=== PATIENT | female | born 1950 | race Caucasian/White ===

== ENCOUNTER 2018-06-21 06:04 | Emergency (ER) | payer MEDICARE, BC ==
[~2018-06-21] VITALS: Ht 170.2 cm; Wt 115.0 kg
[~2018-06-21 06:04] MED LIST: ALBU18HF2 IH; ASPI81TA52 PO; BUDE10.23 IH; CLON-527 PO; COR3.125T PO; FURO40TA4 PO; LEVO50TA67 PO; LISI-222 PO; POTA8TAB46 PO; PRAM0.5T12 PO; PROM25TA14 PO; TAPE100T PO; ZOC40T PO; [UNRECOGNIZED DRUG - CODE] TOP
[2018-06-21] MEDS ORDERED: normal saline 1000ML IV soln IVB ONE ×2 (06:10→07:05)
[2018-06-21] MEDS ORDERED: ondansetron/PF 4mg/2ml inj IV ONE (06:10)
[2018-06-21] MEDS ORDERED: glycopyrrolate 0.2mg/ml inj IV ONE (06:25)
[2018-06-21 06:35] LABS: BASOPHILS % (AUTO) 0.2 % (0-1); EOSINOPHILS # (AUTO) 0.1 X10'3 (0-0.9); EOSINOPHILS % (AUTO) 0.8 % (0-6); HEMATOCRIT 47.2 % (35.0-45.0); HEMOGLOBIN 15.8 g/dl (12.0-16.0); LYMPHOCYTES # (AUTO) 1.8 X10'3 (1.1-4.8); LYMPHOCYTES % (AUTO) 24.4 % (21-51); MEAN CORPUSCULAR HEMOGLOBIN 29.4 PG (27.0-31.0); MEAN CORPUSCULAR HGB CONC 33.4 % (33.0-36.5); MEAN CORPUSCULAR VOLUME 87.9 FL (78-98); MEAN PLATELET VOLUME 8.5 FL (7.4-10.4); MONOCYTES # (AUTO) 0.4 X10'3 (0-0.9); MONOCYTES % (AUTO) 4.9 % (2-12); NEUTROPHILS # (AUTO) 5.2 X10'3 (1.8-7.7); NEUTROPHILS % (AUTO) 69.7 % (42-75); PLATELET COUNT 321 X10'3 (140-440); RED BLOOD COUNT 5.37 X10'6 (4.20-5.60); RED CELL DISTRIBUTION WIDTH 12.8 % (11.5-14.5); WHITE BLOOD COUNT 7.5 X10'3 (4.5-11.0)
[2018-06-21 06:49] LABS: ALANINE AMINOTRANSFERASE 43 U/L (12-78); ALBUMIN 3.9 G/DL (3.4-5.0); ALKALINE PHOSPHATASE 101 IU/L (46-116); ANION GAP 17 (8-16); ASPARTATE AMINO TRANSFERASE 29 U/L (10-37); BILIRUBIN,TOTAL 0.8 MG/DL (0.1-1.0); BLOOD UREA NITROGEN 20 MG/DL (7-18); BUN/CREATININE RATIO 21.5 (6.6-38.0); CALCIUM 8.7 MG/DL (8.5-10.1); CHLORIDE 104 MMOL/L (99-107); CREATININE 0.93 MG/DL (0.40-0.90); GLUCOSE 140 MG/DL (70-104); LIPASE 83 U/L (73-393); POTASSIUM 3.4 MMOL/L (3.5-5.1); SODIUM 140 MMOL/L (135-145); eGFR 60 ML/MIN
--- NOTE | 2018-06-21 07:30 | NUR ---
pt aware of need for urine. pt is receiving IVF. on 2nd liter.
[2018-06-21 08:18] LABS: CLARITY,URINE CLEAR (Clear); COLOR,URINE YELLOW (Yellow); GLUCOSE, URINE NEGATIVE (Neg); KETONES,URINE 15 mg/dl (Neg); LEUKOCYTE ESTERASE ,URINE NEGATIVE (Neg); NITRITES, URINE NEGATIVE (Neg); OCCULT BLOOD,URINE TRACE-INTACT (Neg); PH,URINE 5.5 (4.8-8.0); PROTEIN,URINE NEGATIVE (Neg); UROBILINOGEN,URINE 0.2 E.U/dL (0.2-1.0)
[2018-06-21 08:29] LABS: UA COLLECTION TYPE CLN CATCH MIDSTREAM
[2018-06-21 08:31] LABS: SQUAMOUS EPITHELIAL CELL,UR MODERATE /LPF (FEW)
[2018-06-21 08:32] LABS: MUCUS STRANDS FEW /LPF (Neg)
[2018-06-21 08:33] LABS: BACTERIA,URINE 1+ /HPF (Neg); WBC,URINE 0-4 /HPF (0-4)
[2018-06-21 08:34] LABS: RBC,URINE 0-2 /HPF (0-2)
[2018-06-21] MEDS ORDERED: ONDA4TAB12 PO (08:43)
[2018-06-21] MEDS ORDERED: DICY10CA88 PO (08:43)
[2018-06-21 08:55] VITALS: BP 131/92
== END 2018-06-21 08:57 | disposition home or self-care (01) ==
LOC: ER 06:05
DX: E86.0 Dehydration (principal); R10.84 Generalized abdominal pain; R11.2 Nausea with vomiting, unspecified; R19.7 Diarrhea, unspecified; I50.9 Heart failure, unspecified; J44.9 Chronic obstructive pulmonary disease, unspecified; Z90.710 Acquired absence of both cervix and uterus; Z88.5 Allergy status to narcotic agent
CPT/HCPCS: 36415; 80053; 81001; 83605; 83690; 85025; 96361; 96374; 96375; 99283; J2405; J7030; J3490

== ENCOUNTER 2019-03-17 11:45 | Emergency (ER) | payer MEDICARE, BC ==
[~2019-03-17] VITALS: Ht 170.2 cm; Wt 133.8 kg
[~2019-03-17 11:45] MED LIST changes: -ALBU18HF2 IH; -ASPI81TA52 PO; -BUDE10.23 IH; -CLON-527 PO; -COR3.125T PO; -FURO40TA4 PO; -LEVO50TA67 PO; -LISI-222 PO; +ONDA4TAB12 PO; -POTA8TAB46 PO; -PRAM0.5T12 PO; -PROM25TA14 PO; -TAPE100T PO; -ZOC40T PO; -[UNRECOGNIZED DRUG - CODE] TOP
[2019-03-17 11:52] VITALS: BP 140/86
[2019-03-17] MEDS ORDERED: AMOX500C2 PO (12:27)
== END 2019-03-17 12:55 | disposition home or self-care (01) ==
LOC: ER 11:46
DX: J06.9 Acute upper respiratory infection, unspecified (principal); J02.9 Acute pharyngitis, unspecified; H92.09 Otalgia, unspecified ear; I50.9 Heart failure, unspecified; J44.9 Chronic obstructive pulmonary disease, unspecified; Z90.710 Acquired absence of both cervix and uterus; Z98.890 Other specified postprocedural states; Z60.2 Problems related to living alone; Z88.5 Allergy status to narcotic agent; Z79.899 Other long term (current) drug therapy
CPT/HCPCS: 99283

== ENCOUNTER 2019-08-31 11:51 | Emergency (ER) | payer MEDICARE, BC ==
[~2019-08-31] VITALS: Ht 170.2 cm; Wt 145.4 kg
[2019-08-31 11:52] VITALS: BP 156/85
[2019-08-31 12:45] LABS: BASOPHILS % (AUTO) 0.8 % (0-1); EOSINOPHILS # (AUTO) 0.3 X10'3 (0-0.9); EOSINOPHILS % (AUTO) 4.7 % (0-6); HEMATOCRIT 41.1 % (35.0-45.0); LYMPHOCYTES # (AUTO) 1.9 X10'3 (1.1-4.8); LYMPHOCYTES % (AUTO) 32.3 % (21-51); MEAN CORPUSCULAR HGB CONC 34.1 g/dL (33.0-36.5); MEAN CORPUSCULAR VOLUME 87.8 FL (78-98); MEAN PLATELET VOLUME 7.9 FL (7.4-10.4); MONOCYTES # (AUTO) 0.6 X10'3 (0-0.9); MONOCYTES % (AUTO) 10.7 % (2-12); NEUTROPHILS # (AUTO) 3.1 X10'3 (1.8-7.7); NEUTROPHILS % (AUTO) 51.5 % (42-75); PLATELET COUNT 269 X10'3 (140-440); RED BLOOD COUNT 4.68 X10'6 (4.20-5.60); RED CELL DISTRIBUTION WIDTH 13.3 % (11.5-14.5); WHITE BLOOD COUNT 5.9 X10'3 (4.5-11.0)
[2019-08-31 12:58] LABS: ALANINE AMINOTRANSFERASE 31 U/L (12-78); ALBUMIN 3.6 G/DL (3.4-5.0); ALKALINE PHOSPHATASE 99 IU/L (46-116); ANION GAP 9 (8-16); ASPARTATE AMINO TRANSFERASE 24 U/L (10-37); BILIRUBIN,TOTAL 0.6 MG/DL (0.1-1.0); BLOOD UREA NITROGEN 13 MG/DL (7-18); BUN/CREATININE RATIO 13.8 (6.6-38.0); CALCIUM 8.4 MG/DL (8.5-10.1); CHLORIDE 105 MMOL/L (99-107); CREATININE 0.94 MG/DL (0.40-0.90); GLUCOSE 122 MG/DL (70-104); SODIUM 137 MMOL/L (135-145); TOTAL PROTEIN 7.3 G/DL (6.4-8.2); eGFR 59 ML/MIN
--- NOTE | 2019-08-31 13:01 | NUR ---
in room getting breathing tx
--- NOTE | 2019-08-31 17:47 | NUR ---
Called in prescription for Zithromax per package instructions to [facility] on [facility] per Dr. Evans. 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
== END 2019-08-31 13:36 | disposition home or self-care (01) ==
LOC: ER 11:51
DX: B34.9 Viral infection, unspecified (principal); I50.9 Heart failure, unspecified; J44.9 Chronic obstructive pulmonary disease, unspecified; R05 Cough; R06.02 Shortness of breath; R09.3 Abnormal sputum; Z90.710 Acquired absence of both cervix and uterus; Z98.890 Other specified postprocedural states; Z87.891 Personal history of nicotine dependence; Z60.2 Problems related to living alone; Z88.5 Allergy status to narcotic agent; Z79.899 Other long term (current) drug therapy
CPT/HCPCS: 36415; 71046; 80053; 83605; 85025; 87040; 87502; 87503; 93005; 99285

== ENCOUNTER 2019-10-02 01:19 | Emergency (ER) | payer MEDICARE ==
[~2019-10-02] VITALS: Ht 170.2 cm; Wt 140.0 kg
[2019-10-02 01:52] LABS: BASOPHILS # (AUTO) 0.1 X10'3 (0-0.2); BASOPHILS % (AUTO) 0.7 % (0-1); EOSINOPHILS # (AUTO) 0.3 X10'3 (0-0.9); EOSINOPHILS % (AUTO) 2.5 % (0-6); HEMATOCRIT 42.4 % (35.0-45.0); HEMOGLOBIN 14.4 g/dl (12.0-16.0); LYMPHOCYTES # (AUTO) 3.3 X10'3 (1.1-4.8); LYMPHOCYTES % (AUTO) 27.5 % (21-51); MEAN CORPUSCULAR HEMOGLOBIN 30.3 PG (27.0-31.0); MEAN CORPUSCULAR HGB CONC 33.8 g/dL (33.0-36.5); MEAN CORPUSCULAR VOLUME 89.6 FL (78-98); MONOCYTES # (AUTO) 0.9 X10'3 (0-0.9); MONOCYTES % (AUTO) 7.2 % (2-12); NEUTROPHILS # (AUTO) 7.5 X10'3 (1.8-7.7); NEUTROPHILS % (AUTO) 62.1 % (42-75); PLATELET COUNT 317 X10'3 (140-440); RED BLOOD COUNT 4.74 X10'6 (4.20-5.60); RED CELL DISTRIBUTION WIDTH 13.4 % (11.5-14.5)
[2019-10-02 02:00] LABS: ALANINE AMINOTRANSFERASE 29 U/L (12-78); ALBUMIN 3.8 G/DL (3.4-5.0); ALKALINE PHOSPHATASE 103 IU/L (46-116); ANION GAP 9 (8-16); ASPARTATE AMINO TRANSFERASE 19 U/L (10-37); BILIRUBIN,TOTAL 0.6 MG/DL (0.1-1.0); BLOOD UREA NITROGEN 16 MG/DL (7-18); BUN/CREATININE RATIO 16.7 (6.6-38.0); CHLORIDE 104 MMOL/L (99-107); CREATININE 0.96 MG/DL (0.40-0.90); GLUCOSE 120 MG/DL (70-104); LIPASE 230 U/L (73-393); POTASSIUM 3.9 MMOL/L (3.5-5.1); SODIUM 139 MMOL/L (135-145); TOTAL CARBON DIOXIDE 26.1 MMOL/L (24-32); TOTAL PROTEIN 7.7 G/DL (6.4-8.2); eGFR 58 ML/MIN
[2019-10-02] MEDS ORDERED: ondansetron/PF 4mg/2ml inj IV ONE (02:15)
[2019-10-02] MEDS ORDERED: LIDOcaine Viscous 15ml cup MM ONE (02:15)
[2019-10-02] MEDS ORDERED: mag hydrox/Alum hydrox/simeth 30ml oral suspension PO ONE (02:15)
[2019-10-02] MEDS ORDERED: pantoprazole 40 MG vial IV ONE (02:15)
[2019-10-02 02:51] LABS: CLARITY,URINE CLEAR (Clear); COLOR,URINE YELLOW (Yellow); GLUCOSE, URINE NEGATIVE (Neg); KETONES,URINE NEGATIVE (Neg); LEUKOCYTE ESTERASE ,URINE TRACE (Neg); NITRITES, URINE NEGATIVE (Neg); OCCULT BLOOD,URINE NEGATIVE (Neg); PROTEIN,URINE NEGATIVE (Neg); UROBILINOGEN,URINE 0.2 E.U/dL (0.2-1.0)
[2019-10-02 03:04] LABS: UA COLLECTION TYPE CLN CATCH MIDSTREAM
[2019-10-02 03:06] LABS: BACTERIA,URINE NONE SEEN /HPF (Neg); MUCUS STRANDS FEW /LPF (Neg); RBC,URINE 0-2 /HPF (0-2); SQUAMOUS EPITHELIAL CELL,UR MODERATE /LPF (FEW); WBC,URINE 0-4 /HPF (0-4)
--- NOTE | 2019-10-02 03:46 | NUR ---
patient states " i am through the roof with pain." let md know,now dr. leyva at bedside assessing patients pain
[2019-10-02] MEDS ORDERED: SUCR1ORA12 PO (03:55)
[2019-10-02] MEDS ORDERED: sucralfate 1gm/10ml UD suspension PO SCH (03:55)
[2019-10-02] MEDS ORDERED: PANT-47 PO (03:55)
[2019-10-02 04:10] VITALS: BP 141/73
== END 2019-10-02 04:28 | disposition home or self-care (01) ==
LOC: ER 01:20
DX: R10.13 Epigastric pain (principal); R10.11 Right upper quadrant pain; R10.12 Left upper quadrant pain; I50.9 Heart failure, unspecified; J44.9 Chronic obstructive pulmonary disease, unspecified; E66.9 Obesity, unspecified; Z90.49 Acquired absence of other specified parts of digestive tract; Z90.710 Acquired absence of both cervix and uterus; Z98.890 Other specified postprocedural states; Z60.2 Problems related to living alone; Z88.5 Allergy status to narcotic agent; Z79.899 Other long term (current) drug therapy
CPT/HCPCS: 36415; 80053; 81001; 83690; 85025; 87088; 93005; 96374; 96375; 99284; C9113; J2405

== ENCOUNTER 2019-12-15 19:52 | Emergency (ER) | payer MEDICARE ==
[~2019-12-15] VITALS: Ht 170.2 cm; Wt 125.0 kg
[~2019-12-15 19:52] MED LIST changes: +PANT-47 PO; +SUCR1ORA12 PO
[2019-12-15] MEDS ORDERED: HYDR-4353 PO (21:32)
[2019-12-15] MEDS ORDERED: HYDROcodone/acetaminophen 10/325mg tab PO ONE (21:35)
[2019-12-15 22:29] VITALS: BP 170/91
== END 2019-12-15 22:22 | disposition home or self-care (01) ==
LOC: ER 19:52
DX: S89.91XA Unspecified injury of right lower leg, initial encounter (principal); I50.9 Heart failure, unspecified; J44.9 Chronic obstructive pulmonary disease, unspecified; Z60.2 Problems related to living alone; Z88.5 Allergy status to narcotic agent; Z79.899 Other long term (current) drug therapy; W10.9XXA Fall (on) (from) unspecified stairs and steps, initial encounter; Y93.89 Activity, other specified; Y92.89 Other specified places as the place of occurrence of the external cause; Y99.8 Other external cause status
CPT/HCPCS: 29505; 73564; 99283

== ENCOUNTER 2020-06-13 13:34 | Emergency (ER) | payer MEDICARE ==
[~2020-06-13] VITALS: Ht 170.2 cm; Wt 127.3 kg
[2020-06-13 14:09] VITALS: BP 129/90
[2020-06-13] MEDS ORDERED: ketorolac tromethamine 15mg/ml inj. IM ONE (17:45)
[2020-06-13] MEDS ORDERED: CYCL-1 PO (17:56)
== END 2020-06-13 18:20 | disposition home or self-care (01) ==
LOC: ER 13:35
DX: M54.31 Sciatica, right side (principal); I50.9 Heart failure, unspecified; J44.9 Chronic obstructive pulmonary disease, unspecified; E07.9 Disorder of thyroid, unspecified; Z98.890 Other specified postprocedural states; Z90.49 Acquired absence of other specified parts of digestive tract; Z90.710 Acquired absence of both cervix and uterus; Z88.6 Allergy status to analgesic agent; Z88.7 Allergy status to serum and vaccine; Z79.899 Other long term (current) drug therapy
CPT/HCPCS: 96372; 99283; J1885

== ENCOUNTER 2020-10-20 16:00 | Emergency (ER) | payer MEDICARE ==
[~2020-10-20] VITALS: Ht 170.2 cm; Wt 130.7 kg
[~2020-10-20 16:00] MED LIST changes: +CYCL-1 PO
[2020-10-20 17:15] LABS: BASOPHILS # (AUTO) 0.1 X10'3 (0-0.2); BASOPHILS % (AUTO) 0.8 % (0-1); EOSINOPHILS # (AUTO) 0.2 X10'3 (0-0.9); EOSINOPHILS % (AUTO) 2.9 % (0-6); HEMATOCRIT 41.2 % (35.0-45.0); HEMOGLOBIN 14.1 g/dl (12.0-16.0); LYMPHOCYTES # (AUTO) 2.7 X10'3 (1.1-4.8); LYMPHOCYTES % (AUTO) 32.9 % (21-51); MEAN CORPUSCULAR HGB CONC 34.2 g/dL (33.0-36.5); MEAN CORPUSCULAR VOLUME 90.6 FL (78-98); MEAN PLATELET VOLUME 8.3 FL (7.4-10.4); MONOCYTES # (AUTO) 0.6 X10'3 (0-0.9); MONOCYTES % (AUTO) 7.7 % (2-12); NEUTROPHILS # (AUTO) 4.5 X10'3 (1.8-7.7); NEUTROPHILS % (AUTO) 55.7 % (42-75); PLATELET COUNT 312 X10'3 (140-440); RED BLOOD COUNT 4.54 X10'6 (4.20-5.60); RED CELL DISTRIBUTION WIDTH 13.7 % (11.5-14.5); WHITE BLOOD COUNT 8.2 X10'3 (4.5-11.0)
[2020-10-20 17:24] LABS: ALANINE AMINOTRANSFERASE 26 U/L (12-78); ALBUMIN 3.6 G/DL (3.4-5.0); ALKALINE PHOSPHATASE 90 IU/L (46-116); ANION GAP 13 (8-16); ASPARTATE AMINO TRANSFERASE 18 U/L (10-37); BILIRUBIN,TOTAL 0.4 MG/DL (0.1-1.0); BLOOD UREA NITROGEN 23 MG/DL (7-18); BUN/CREATININE RATIO 25.3 (6.6-38.0); CALCIUM 8.7 MG/DL (8.5-10.1); CHLORIDE 106 MMOL/L (99-107); CREATININE 0.91 MG/DL (0.40-0.90); GLUCOSE 140 MG/DL (70-104); POTASSIUM 3.9 MMOL/L (3.5-5.1); SODIUM 140 MMOL/L (135-145); TOTAL CARBON DIOXIDE 21.1 MMOL/L (24-32); TOTAL PROTEIN 7.3 G/DL (6.4-8.2); eGFR 61 ML/MIN
[2020-10-20] MEDS ORDERED: DOXY100C77 PO (19:50)
[2020-10-20 20:09] VITALS: BP 132/93
== END 2020-10-20 20:15 | disposition home or self-care (01) ==
LOC: ER 16:01
DX: J01.90 Acute sinusitis, unspecified (principal); Z88.6 Allergy status to analgesic agent; Z88.8 Allergy status to other drugs, medicaments and biological substances; Z79.899 Other long term (current) drug therapy; J01.80 Other acute sinusitis
CPT/HCPCS: 36415; 71045; 80053; 83880; 84484; 85025; 93005; 96372; 99284; 99285

== ENCOUNTER 2021-03-12 13:00 | Emergency (ER) | payer MEDICARE ==
[~2021-03-12] VITALS: Ht 170.2 cm; Wt 127.3 kg
[2021-03-12 13:38] VITALS: BP 160/76
[2021-03-12] MEDS ORDERED: ketorolac trometh. 30mg/ml inj. IM ONE (14:25)
== END 2021-03-12 14:45 | disposition home or self-care (01) ==
LOC: ER 13:00
DX: S93.401A Sprain of unspecified ligament of right ankle, initial encounter (principal); J44.9 Chronic obstructive pulmonary disease, unspecified; I50.9 Heart failure, unspecified; Z87.01 Personal history of pneumonia (recurrent); Z90.49 Acquired absence of other specified parts of digestive tract; Z98.890 Other specified postprocedural states; Z90.710 Acquired absence of both cervix and uterus; W17.89XA Other fall from one level to another, initial encounter; Y93.89 Activity, other specified; Y92.89 Other specified places as the place of occurrence of the external cause; Y99.8 Other external cause status
CPT/HCPCS: 73610; 96372; 99283; J1885

== ENCOUNTER 2021-04-06 17:10 | Emergency (ER) | payer MEDICARE ==
[~2021-04-06] VITALS: Ht 170.2 cm; Wt 127.3 kg
[2021-04-06 18:05] VITALS: BP_SYST 161
[2021-04-06] MEDS ORDERED: SULF1TAB49 PO (18:44)
== END 2021-04-06 18:52 | disposition home or self-care (01) ==
LOC: ER 17:10
DX: J01.90 Acute sinusitis, unspecified (principal); Z20.822 Contact with and (suspected) exposure to COVID-19; I50.9 Heart failure, unspecified; J44.9 Chronic obstructive pulmonary disease, unspecified; Z87.01 Personal history of pneumonia (recurrent); Z90.49 Acquired absence of other specified parts of digestive tract; Z90.710 Acquired absence of both cervix and uterus; Z60.2 Problems related to living alone; Z79.2 Long term (current) use of antibiotics; Z79.899 Other long term (current) drug therapy
CPT/HCPCS: 87635; 99283; C9803

== ENCOUNTER 2021-11-06 14:40 | Emergency (ER) | payer MEDICARE ==
[~2021-11-06] VITALS: Ht 170.2 cm; Wt 131.8 kg
[2021-11-06 15:36] LABS: BASOPHILS # (AUTO) 0.1 X10'3 (0-0.2); BASOPHILS % (AUTO) 0.6 % (0-1); EOSINOPHILS # (AUTO) 0.3 X10'3 (0-0.9); HEMATOCRIT 40.9 % (35.0-45.0); LYMPHOCYTES # (AUTO) 3.2 X10'3 (1.1-4.8); LYMPHOCYTES % (AUTO) 34.9 % (21-51); MEAN CORPUSCULAR HEMOGLOBIN 30.5 PG (27.0-31.0); MEAN CORPUSCULAR HGB CONC 34.2 g/dL (33.0-36.5); MEAN CORPUSCULAR VOLUME 89.2 FL (78-98); MEAN PLATELET VOLUME 8.3 FL (7.4-10.4); MONOCYTES # (AUTO) 0.7 X10'3 (0-0.9); MONOCYTES % (AUTO) 7.5 % (2-12); PLATELET COUNT 297 X10'3 (140-440); RED BLOOD COUNT 4.59 X10'6 (4.20-5.60); RED CELL DISTRIBUTION WIDTH 13.5 % (11.5-14.5); WHITE BLOOD COUNT 9.2 X10'3 (4.5-11.0)
[2021-11-06 15:53] LABS: APTT 28 SECONDS (22-32)
[2021-11-06 15:55] LABS: ALANINE AMINOTRANSFERASE 22 U/L (12-78); ALBUMIN 3.7 G/DL (3.4-5.0); ALBUMIN/GLOBULIN RATIO 1.1 (1.1-1.5); ALKALINE PHOSPHATASE 80 IU/L (46-116); ANION GAP 7 (8-16); ASPARTATE AMINO TRANSFERASE 12 U/L (10-37); BILIRUBIN,TOTAL 0.4 MG/DL (0.1-1.0); BLOOD UREA NITROGEN 30 MG/DL (7-18); BUN/CREATININE RATIO 36.1 (6.6-38.0); CHLORIDE 104 MMOL/L (99-107); CREATININE 0.83 MG/DL (0.40-0.90); GLUCOSE 129 MG/DL (70-104); POTASSIUM 3.6 MMOL/L (3.5-5.1); SODIUM 137 MMOL/L (135-145); TOTAL CARBON DIOXIDE 25.8 MMOL/L (24-32); TOTAL PROTEIN 7.2 G/DL (6.4-8.2); eGFR 68 ML/MIN
[2021-11-06 16:15] VITALS: BP 146/110
== END 2021-11-06 16:56 | disposition home or self-care (01) ==
LOC: ER 14:41
DX: R55 Syncope and collapse (principal); R42 Dizziness and giddiness; R11.0 Nausea; R53.1 Weakness; R29.810 Facial weakness; I50.9 Heart failure, unspecified; J44.9 Chronic obstructive pulmonary disease, unspecified; Z87.01 Personal history of pneumonia (recurrent); Z90.49 Acquired absence of other specified parts of digestive tract; Z90.710 Acquired absence of both cervix and uterus; Z79.899 Other long term (current) drug therapy
CPT/HCPCS: 36415; 70450; 71045; 80053; 82948; 84484; 85025; 85610; 85730; 93005; 99285

== ENCOUNTER 2022-10-18 19:21 | Emergency (ER) | payer MEDICARE ==
[~2022-10-18] VITALS: Ht 170.2 cm; Wt 105.6 kg
[2022-10-18] MEDS ORDERED: sulfamethoxazole/trimethoprim DS (800/160mg) tablet PO ONE (20:45)
[2022-10-18] MEDS ORDERED: SULF1TAB49 PO (21:02)
[2022-10-18 21:07] VITALS: BP 132/81
== END 2022-10-18 21:07 | disposition home or self-care (01) ==
LOC: ER 19:21
DX: J01.80 Other acute sinusitis (principal); I51.9 Heart disease, unspecified; Z79.899 Other long term (current) drug therapy
CPT/HCPCS: 99283

== ENCOUNTER 2022-12-10 15:27 | Emergency (ER) | payer MEDICARE ==
[~2022-12-10] VITALS: Ht 170.2 cm; Wt 118.4 kg
[2022-12-10] MEDS ORDERED: dexamethasone sod phosphate 10mg/ml inj PO STA (16:07)
[2022-12-10] MEDS ORDERED: morphine 4 MG/ML inj SYRINge IM ONE (16:10)
[2022-12-10] MEDS ORDERED: orphenadrine citrate 60mg/2ml inj. IM ONE (16:10)
[2022-12-10] MEDS ORDERED: ondansetron 4mg rapidly disintigrating tab PO ONE (16:10)
[2022-12-10] MEDS ORDERED: CYCL-1 PO (16:17)
[2022-12-10] MEDS ORDERED: IBUP-1984 PO (16:17)
[2022-12-10] MEDS ORDERED: METH4TAB3 PO (16:17)
[2022-12-10 16:39] VITALS: BP 133/84
== END 2022-12-10 17:34 | disposition home or self-care (01) ==
LOC: ER 15:28
DX: S39.012A Strain of muscle, fascia and tendon of lower back, initial encounter (principal); M54.32 Sciatica, left side; J44.9 Chronic obstructive pulmonary disease, unspecified; I50.9 Heart failure, unspecified; Z90.49 Acquired absence of other specified parts of digestive tract; Z90.710 Acquired absence of both cervix and uterus; X58.XXXA Exposure to other specified factors, initial encounter; Y93.89 Activity, other specified; Y92.89 Other specified places as the place of occurrence of the external cause; Y99.8 Other external cause status
CPT/HCPCS: 96372; 99284; J1100; J2270; J2360

== ENCOUNTER 2023-01-14 17:05 | Emergency (ER) | payer MEDICARE ==
[~2023-01-14] VITALS: Ht 170.2 cm; Wt 100.0 kg
[~2023-01-14 17:05] MED LIST changes: +METH4TAB3 PO
[2023-01-14 17:15] VITALS: BP 134/88; PULSE 89; TEMP 98.2; O2SAT 97
[2023-01-14] MEDS ORDERED: ketorolac tromethamine 15mg/ml inj. IM ONE (18:10)
[2023-01-14] MEDS ORDERED: HYDR-3965 PO (18:20)
[2023-01-14 18:35] VITALS: RESP 20
== END 2023-01-14 19:00 | disposition home or self-care (01) ==
LOC: ER 17:06
DX: S86.011A Strain of right Achilles tendon, initial encounter (principal); I50.9 Heart failure, unspecified; J44.9 Chronic obstructive pulmonary disease, unspecified; Z79.899 Other long term (current) drug therapy; Z90.710 Acquired absence of both cervix and uterus; Z90.49 Acquired absence of other specified parts of digestive tract; X58.XXXA Exposure to other specified factors, initial encounter; Y93.89 Activity, other specified; Y92.89 Other specified places as the place of occurrence of the external cause; Y99.8 Other external cause status
CPT/HCPCS: 73610; 96372; 99283; J1885; L4360

== ENCOUNTER 2023-05-20 18:58 | Inpatient (IN) | payer MEDICARE ==
[~2023-05-20] VITALS: Ht 170.2 cm; Wt 115.0 kg
[2023-05-20 19:32] LABS: BASOPHILS % (AUTO) 0.6 % (0-1); EOSINOPHILS # (AUTO) 0.2 X10'3 (0-0.9); EOSINOPHILS % (AUTO) 3.1 % (0-6); HEMATOCRIT 41.3 % (35.0-45.0); HEMOGLOBIN 14.4 g/dl (12.0-16.0); LYMPHOCYTES # (AUTO) 2.1 X10'3 (1.1-4.8); LYMPHOCYTES % (AUTO) 28.6 % (21-51); MEAN CORPUSCULAR HEMOGLOBIN 30.9 PG (27.0-31.0); MEAN CORPUSCULAR HGB CONC 34.9 g/dL (33.0-36.5); MEAN CORPUSCULAR VOLUME 88.6 FL (78-98); MEAN PLATELET VOLUME 8.2 FL (7.4-10.4); MONOCYTES # (AUTO) 0.7 X10'3 (0-0.9); MONOCYTES % (AUTO) 9.1 % (2-12); NEUTROPHILS # (AUTO) 4.3 X10'3 (1.8-7.7); NEUTROPHILS % (AUTO) 58.6 % (42-75); PLATELET COUNT 292 X10'3 (140-440); RED BLOOD COUNT 4.66 X10'6 (4.20-5.60); RED CELL DISTRIBUTION WIDTH 13.3 % (11.5-14.5); WHITE BLOOD COUNT 7.3 X10'3 (4.5-11.0)
[2023-05-20 19:41] LABS: ALANINE AMINOTRANSFERASE 28 U/L (12-78); ALBUMIN 3.8 G/DL (3.4-5.0); ALBUMIN/GLOBULIN RATIO 1.2 (1.1-1.5); ALKALINE PHOSPHATASE 92 IU/L (46-116); ASPARTATE AMINO TRANSFERASE 23 U/L (10-37); BILIRUBIN,TOTAL 0.6 MG/DL (0.1-1.0); BLOOD UREA NITROGEN 27 MG/DL (7-18); BUN/CREATININE RATIO 29.3 (10.0-20.0); CALCIUM 9.3 MG/DL (8.5-10.1); CHLORIDE 105 MMOL/L (99-107); CREATININE 0.92 MG/DL (0.40-0.90); GLUCOSE 113 MG/DL (70-104); LIPASE 30 U/L (16-77); POTASSIUM 3.5 MMOL/L (3.5-5.1); TOTAL PROTEIN 7.1 G/DL (6.4-8.2); eCRCL 55 ML/MIN; eGFR 60 ML/MIN
[2023-05-20 19:42] LABS: ANION GAP 11 (8-16); SODIUM 140 MMOL/L (135-145)
[2023-05-20] MEDS ORDERED: normal saline 1000ml 1,000 ML IV ONE (20:45)
[2023-05-20] MEDS ORDERED: iohexol 300mg/ml 100ml inj. ONE (21:08)
[2023-05-20] MEDS ORDERED: HYDROmorphone inj. 0.5 MG/0.5 ML DISP.SYRIN IV ONE (21:15)
[2023-05-20 21:20] LABS: BILIRUBIN,URINE NEGATIVE (Neg); CLARITY,URINE SLIGHTLY CLOUDY (Clear); COLOR,URINE YELLOW (Yellow); GLUCOSE, URINE NEGATIVE (Neg); KETONES,URINE NEGATIVE (Neg); LEUKOCYTE ESTERASE ,URINE MODERATE (Neg); NITRITES, URINE NEGATIVE (Neg); OCCULT BLOOD,URINE NEGATIVE (Neg); PH,URINE 5.5 (4.8-8.0); PROTEIN,URINE NEGATIVE (Neg); UROBILINOGEN,URINE 0.2 E.U/dL (0.2-1.0)
[2023-05-20 21:30] LABS: UA COLLECTION TYPE CLN CATCH MIDSTREAM
[2023-05-20 21:42] LABS: BACTERIA,URINE 1+ /HPF (Neg); MUCUS STRANDS MODERATE /LPF (Neg); RBC,URINE NONE SEEN /HPF (0-2); SQUAMOUS EPITHELIAL CELL,UR FEW /LPF (FEW); WBC,URINE 30-50 /HPF (0-4)
[2023-05-20] MEDS ORDERED: CefTRIAXone 2gm/D5W 50ml BAG 50 ML IV ONE (22:35)
[2023-05-20] MEDS ORDERED: NO HOME MEDS (23:14)
[2023-05-21] MEDS ORDERED: ondansetron/PF 4mg/2ml inj IV PRN
[2023-05-21] MEDS ORDERED: pantoprazole 40 MG vial IV ONE
[2023-05-21] MEDS ORDERED: magnesium 2GM in 50ml NS 50 ML IV PRN
[2023-05-21] MEDS ORDERED: magnesium 4gm in 100ml NS 100 ML IV PRN
[2023-05-21] MEDS ORDERED: acetaminophen 325mg tablet PO PRN
[2023-05-21] MEDS ORDERED: potassium Cl 20 mEq SR tablet PO PRN ×2
[2023-05-21] MEDS ORDERED: potassium Cl 40MEQ/1/2NS 520ml 520 ML IV PRN
[2023-05-21] MEDS ORDERED: magnesium hydroxide 30ml (MOM) UD suspension PO PRN
[2023-05-21] MEDS ORDERED: magnesium Cl slow-release 64mg tablet PO PRN
[2023-05-21] MEDS: docusate sod 100mg capsule PO SCH ×2 (06:53→19:36)
[2023-05-21] MEDS: heparin, porcine 5000 units/ml vial SQ SCH ×2 (06:54→20:25)
[2023-05-21] MEDS: CefTRIAXone/D5W-Rocephin 1gm 50 ML IV SCH (06:54)
[2023-05-21] MEDS: K and/or MAG REPLACEMENT MC SCH ×2 (07:35→19:36)
[2023-05-21] MEDS ORDERED: mag hydrox/Alum hydrox/simeth 30ml oral suspension PO ONE (07:50)
[2023-05-21] MEDS ORDERED: ketorolac trometh. 30mg/ml inj. IV ONE (07:50)
[2023-05-21] MEDS ORDERED: mag hydrox/Alum hydrox/simeth 30ml oral suspension PO PRN ×2 (07:50)
[2023-05-21] MEDS ORDERED: pregabalin 75mg capsule PO SCH (08:00)
[2023-05-21 08:15] LABS: BASOPHILS # (AUTO) 0.1 X10'3 (0-0.2); BASOPHILS % (AUTO) 0.7 % (0-1); EOSINOPHILS # (AUTO) 0.3 X10'3 (0-0.9); EOSINOPHILS % (AUTO) 4.1 % (0-6); HEMATOCRIT 39.8 % (35.0-45.0); HEMOGLOBIN 13.5 g/dl (12.0-16.0); LYMPHOCYTES # (AUTO) 2.2 X10'3 (1.1-4.8); LYMPHOCYTES % (AUTO) 32.1 % (21-51); MEAN CORPUSCULAR HEMOGLOBIN 30.4 PG (27.0-31.0); MEAN CORPUSCULAR HGB CONC 33.9 g/dL (33.0-36.5); MEAN CORPUSCULAR VOLUME 89.5 FL (78-98); MEAN PLATELET VOLUME 8.2 FL (7.4-10.4); MONOCYTES # (AUTO) 0.6 X10'3 (0-0.9); MONOCYTES % (AUTO) 9.1 % (2-12); NEUTROPHILS # (AUTO) 3.8 X10'3 (1.8-7.7); PLATELET COUNT 280 X10'3 (140-440); RED BLOOD COUNT 4.45 X10'6 (4.20-5.60); RED CELL DISTRIBUTION WIDTH 13.2 % (11.5-14.5)
[2023-05-21 08:21] LABS: ALANINE AMINOTRANSFERASE 26 U/L (12-78); ALBUMIN 3.5 G/DL (3.4-5.0); ALKALINE PHOSPHATASE 89 IU/L (46-116); ANION GAP 10 (8-16); ASPARTATE AMINO TRANSFERASE 23 U/L (10-37); BILIRUBIN,TOTAL 0.5 MG/DL (0.1-1.0); BLOOD UREA NITROGEN 24 MG/DL (7-18); BUN/CREATININE RATIO 24.7 (10.0-20.0); CALCIUM 8.9 MG/DL (8.5-10.1); CHLORIDE 106 MMOL/L (99-107); CREATININE 0.97 MG/DL (0.40-0.90); GLUCOSE 134 MG/DL (70-104); MAGNESIUM 1.9 MG/DL (1.5-2.4); POTASSIUM 3.6 MMOL/L (3.5-5.1); SODIUM 142 MMOL/L (135-145); TOTAL CARBON DIOXIDE 26.2 MMOL/L (24-32); eCRCL 52 ML/MIN; eGFR 57 ML/MIN
[2023-05-21] MEDS: pregabalin 75mg capsule PO SCH (20:25)
[2023-05-21] MEDS: diatr meglu/diatrizoate 30ml oral sol.-(3 dose) bottle PO SCH (20:45)
[2023-05-21 23:00] VITALS: BP 139/72; PULSE 56; RESP 16; RESP 18; TEMP 98; O2SAT 94
[2023-05-22 06:04] LABS: MEAN PLATELET VOLUME 8.3 FL (7.4-10.4); WHITE BLOOD COUNT 5.5 X10'3 (4.5-11.0)
[2023-05-22 06:08] LABS: BASOPHILS % (AUTO) 0.5 % (0-1); EOSINOPHILS # (AUTO) 0.4 X10'3 (0-0.9); EOSINOPHILS % (AUTO) 6.8 % (0-6); HEMATOCRIT 38.3 % (35.0-45.0); HEMOGLOBIN 13.1 g/dl (12.0-16.0); LYMPHOCYTES # (AUTO) 2.2 X10'3 (1.1-4.8); LYMPHOCYTES % (AUTO) 39.7 % (21-51); MEAN CORPUSCULAR HEMOGLOBIN 30.8 PG (27.0-31.0); MEAN CORPUSCULAR HGB CONC 34.3 g/dL (33.0-36.5); MONOCYTES # (AUTO) 0.5 X10'3 (0-0.9); MONOCYTES % (AUTO) 9.9 % (2-12); NEUTROPHILS # (AUTO) 2.4 X10'3 (1.8-7.7); NEUTROPHILS % (AUTO) 43.1 % (42-75); PLATELET COUNT 255 X10'3 (140-440); RED BLOOD COUNT 4.25 X10'6 (4.20-5.60); RED CELL DISTRIBUTION WIDTH 12.8 % (11.5-14.5)
[2023-05-22 06:25] LABS: ALANINE AMINOTRANSFERASE 25 U/L (12-78); ALBUMIN 3.3 G/DL (3.4-5.0); ALBUMIN/GLOBULIN RATIO 1.1 (1.1-1.5); ALKALINE PHOSPHATASE 78 IU/L (46-116); ANION GAP 7 (8-16); ASPARTATE AMINO TRANSFERASE 20 U/L (10-37); BILIRUBIN,TOTAL 0.6 MG/DL (0.1-1.0); BLOOD UREA NITROGEN 19 MG/DL (7-18); BUN/CREATININE RATIO 22.6 (10.0-20.0); CALCIUM 8.9 MG/DL (8.5-10.1); CHLORIDE 107 MMOL/L (99-107); CREATININE 0.84 MG/DL (0.40-0.90); GLUCOSE 96 MG/DL (70-104); POTASSIUM 3.9 MMOL/L (3.5-5.1); SODIUM 140 MMOL/L (135-145); TOTAL CARBON DIOXIDE 25.8 MMOL/L (24-32); TOTAL PROTEIN 6.3 G/DL (6.4-8.2); eCRCL 60 ML/MIN; eGFR 67 ML/MIN
[2023-05-22 06:42] VITALS: BP 135/67; PULSE 55; RESP 16; TEMP 98; O2SAT 95
[2023-05-22] MEDS: K and/or MAG REPLACEMENT MC SCH ×2 (06:53→07:21)
[2023-05-22] MEDS: heparin, porcine 5000 units/ml vial SQ SCH (07:10)
[2023-05-22] MEDS: docusate sod 100mg capsule PO SCH (07:14)
[2023-05-22] MEDS: diatr meglu/diatrizoate 30ml oral sol.-(3 dose) bottle PO SCH (07:16)
[2023-05-22] MEDS: pregabalin 75mg capsule PO SCH (07:16)
[2023-05-22 08:00] VITALS: RESP 16; O2SAT 94
[2023-05-22] MEDS: CefTRIAXone/D5W-Rocephin 1gm 50 ML IV SCH (09:22)
[2023-05-22 09:25] VITALS: RESP 18
[2023-05-22 10:00] VITALS: BP 119/78; PULSE 65; RESP 16; TEMP 97.4; O2SAT 95
[2023-05-22] MEDS ORDERED: pneumococcal 23-VAL P-sac vacc 25 mcg/0.5ml vial IMVAC ONE ×2 (10:00→19:00)
[2023-05-22] MEDS ORDERED: FLU VACC QS2023-24(6MOS UP)/PF 60 MCG/0.5 ML SYRINGE IM ONE ×2 (10:00→19:00)
[2023-05-22] MEDS ORDERED: iohexol 300mg/ml 100ml inj. ONE (11:36)
[2023-05-22] MEDS ORDERED: CEPH250T PO (11:45)
== END 2023-05-22 13:47 | disposition home or self-care (01) | DRG 690 ==
LOC: ER 18:58 → ED HOLD 23:59 → EDBEDREQ 05-21 23:10 → ORTHO 4S 05-21 23:35
PROVIDERS: ADMIT Internal Medicine; ATTEND Family Medicine
PROC: 3E0234Z Introduction of Serum, Toxoid and Vaccine into Muscle, Percutaneous Approach (ICD-10-PCS; principal; 2023-05-20)
DX: N30.00 Acute cystitis without hematuria (principal); J44.9 Chronic obstructive pulmonary disease, unspecified; I50.9 Heart failure, unspecified; G50.0 Trigeminal neuralgia; K44.9 Diaphragmatic hernia without obstruction or gangrene; F32.A Depression, unspecified; K21.9 Gastro-esophageal reflux disease without esophagitis; Z90.49 Acquired absence of other specified parts of digestive tract; Z90.710 Acquired absence of both cervix and uterus; Z79.899 Other long term (current) drug therapy; K29.70 Gastritis, unspecified, without bleeding
CPT/HCPCS: 36415; 74177; 80053; 81001; 83605; 83690; 83735; 84145; 85025; 87040; 87077; 87081; 87088; 87186; 90686; 90732; 99285; C2617; C9113; G0378; J0696; J1170; J1644; J1885; J2405; J3490; J7030; Q9963; Q9967

== ENCOUNTER 2023-06-08 15:22 | Emergency (ER) | payer MEDICARE ==
[~2023-06-08] VITALS: Ht 170.2 cm; Wt 113.6 kg
[~2023-06-08 15:22] MED LIST changes: +CEPH250T PO; -CYCL-1 PO; -METH4TAB3 PO; +NO HOME MEDS; -ONDA4TAB12 PO; -PANT-47 PO; -SUCR1ORA12 PO
[2023-06-08 16:49] LABS: BASOPHILS % (AUTO) 0.5 % (0-1); EOSINOPHILS # (AUTO) 0.3 X10'3 (0-0.9); EOSINOPHILS % (AUTO) 4.6 % (0-6); HEMATOCRIT 42.3 % (35.0-45.0); HEMOGLOBIN 14.5 g/dl (12.0-16.0); LYMPHOCYTES % (AUTO) 29.8 % (21-51); MEAN CORPUSCULAR HEMOGLOBIN 30.5 PG (27.0-31.0); MEAN CORPUSCULAR HGB CONC 34.2 g/dL (33.0-36.5); MEAN CORPUSCULAR VOLUME 89.2 FL (78-98); MEAN PLATELET VOLUME 8.4 FL (7.4-10.4); MONOCYTES # (AUTO) 0.7 X10'3 (0-0.9); MONOCYTES % (AUTO) 9.9 % (2-12); NEUTROPHILS # (AUTO) 3.7 X10'3 (1.8-7.7); NEUTROPHILS % (AUTO) 55.2 % (42-75); PLATELET COUNT 292 X10'3 (140-440); RED BLOOD COUNT 4.74 X10'6 (4.20-5.60); RED CELL DISTRIBUTION WIDTH 13.6 % (11.5-14.5); WHITE BLOOD COUNT 6.7 X10'3 (4.5-11.0)
[2023-06-08 17:02] LABS: ALANINE AMINOTRANSFERASE 23 U/L (12-78); ALBUMIN 3.6 G/DL (3.4-5.0); ALBUMIN/GLOBULIN RATIO 1.1 (1.1-1.5); ALKALINE PHOSPHATASE 84 IU/L (46-116); ANION GAP 10 (8-16); ASPARTATE AMINO TRANSFERASE 20 U/L (10-37); BILIRUBIN,TOTAL 0.4 MG/DL (0.1-1.0); BLOOD UREA NITROGEN 18 MG/DL (7-18); BUN/CREATININE RATIO 21.4 (10.0-20.0); CALCIUM 8.9 MG/DL (8.5-10.1); CHLORIDE 106 MMOL/L (99-107); CREATININE 0.84 MG/DL (0.40-0.90); GLUCOSE 129 MG/DL (70-104); LIPASE 28 U/L (16-77); POTASSIUM 3.8 MMOL/L (3.5-5.1); SODIUM 139 MMOL/L (135-145); TOTAL CARBON DIOXIDE 23.1 MMOL/L (24-32); eCRCL 60 ML/MIN; eGFR 67 ML/MIN
[2023-06-08 19:15] VITALS: TEMP 98
[2023-06-08 22:50] LABS: BILIRUBIN,URINE NEGATIVE (Neg); CLARITY,URINE CLOUDY (Clear); COLOR,URINE YELLOW (Yellow); GLUCOSE, URINE NEGATIVE (Neg); KETONES,URINE NEGATIVE (Neg); LEUKOCYTE ESTERASE ,URINE MODERATE (Neg); NITRITES, URINE NEGATIVE (Neg); OCCULT BLOOD,URINE SMALL (Neg); PH,URINE 5.5 (4.8-8.0); PROTEIN,URINE NEGATIVE (Neg); UROBILINOGEN,URINE 0.2 E.U/dL (0.2-1.0)
[2023-06-08 22:57] LABS: MUCUS STRANDS MANY /LPF (Neg); SQUAMOUS EPITHELIAL CELL,UR MANY /LPF (FEW); UA COLLECTION TYPE VOIDED
[2023-06-08 22:58] LABS: WBC,URINE 30-50 /HPF (0-4)
[2023-06-08 23:00] LABS: AMORPHOUS URATES 1+; CAL OXALATE CRYSTALS 1+ /HPF (NEGATIVE); WBC CLUMPS,URINE FEW /HPF (NEGATIVE)
[2023-06-08 23:01] VITALS: BP 156/87; PULSE 60; RESP 20; O2SAT 96
[2023-06-08 23:01] LABS: BACTERIA,URINE 1+ /HPF (Neg); RBC,URINE 0-2 /HPF (0-2)
[2023-06-08] MEDS ORDERED: LIDOcaine Viscous 15ml cup MM ONE (23:10)
[2023-06-08] MEDS ORDERED: ondansetron 4mg rapidly disintigrating tab PO ONE (23:10)
[2023-06-08] MEDS ORDERED: mag hydrox/Alum hydrox/simeth 30ml oral suspension PO ONE (23:10)
[2023-06-08] MEDS ORDERED: famotidine 20mg tablet PO ONE (23:10)
[2023-06-08] MEDS ORDERED: pantoprazole 40mg Tablet.DR PO ONE (23:10)
[2023-06-09] MEDS ORDERED: PANT-47 PO (01:07)
== END 2023-06-09 05:23 | disposition home or self-care (01) ==
LOC: ER 15:23
DX: K29.70 Gastritis, unspecified, without bleeding (principal); I50.9 Heart failure, unspecified; J44.9 Chronic obstructive pulmonary disease, unspecified; Z90.49 Acquired absence of other specified parts of digestive tract; Z90.710 Acquired absence of both cervix and uterus; Z79.899 Other long term (current) drug therapy; Z79.2 Long term (current) use of antibiotics
CPT/HCPCS: 36415; 80053; 81001; 83690; 85025; 99283

== ENCOUNTER 2024-05-06 12:33 | Emergency (ER) | payer MEDICARE ==
[~2024-05-06] VITALS: Ht 170.2 cm; Wt 122.5 kg
[~2024-05-06 12:33] MED LIST changes: +PANT-47 PO
[2024-05-06] MEDS ORDERED: FLUT16SP2 BOTHNARES (14:07)
[2024-05-06] MEDS ORDERED: AMOX-580 PO (14:07)
[2024-05-06] MEDS ORDERED: MUPI22OI30 TP (14:07)
[2024-05-06 14:26] VITALS: BP 134/86; PULSE 88; RESP 18; TEMP 98.8; O2SAT 98
== END 2024-05-06 14:27 | disposition home or self-care (01) ==
LOC: ER 12:33
DX: J01.00 Acute maxillary sinusitis, unspecified (principal); I50.9 Heart failure, unspecified; J44.9 Chronic obstructive pulmonary disease, unspecified; Z79.2 Long term (current) use of antibiotics; Z79.899 Other long term (current) drug therapy; Z90.49 Acquired absence of other specified parts of digestive tract; Z90.710 Acquired absence of both cervix and uterus
CPT/HCPCS: 99284

== ENCOUNTER 2024-06-13 06:08 | Emergency (ER) | payer MEDICARE ==
[~2024-06-13] VITALS: Ht 170.2 cm; Wt 118.8 kg
[~2024-06-13 06:08] MED LIST changes: -CEPH250T PO; +FLUT16SP2 BOTHNARES
[2024-06-13 06:11] VITALS: TEMP 97.7
[2024-06-13 07:47] LABS: BASOPHILS % (AUTO) 0.6 % (0-1); EOSINOPHILS # (AUTO) 0.3 X10'3 (0-0.9); EOSINOPHILS % (AUTO) 3.8 % (0-6); HEMATOCRIT 39.8 % (35.0-45.0); HEMOGLOBIN 13.6 g/dl (12.0-16.0); LYMPHOCYTES # (AUTO) 2.4 X10'3 (1.1-4.8); LYMPHOCYTES % (AUTO) 34.8 % (21-51); MEAN CORPUSCULAR HEMOGLOBIN 30.9 PG (27.0-31.0); MEAN CORPUSCULAR HGB CONC 34.2 g/dL (33.0-36.5); MEAN CORPUSCULAR VOLUME 90.2 FL (78-98); MONOCYTES # (AUTO) 0.7 X10'3 (0-0.9); MONOCYTES % (AUTO) 10.5 % (2-12); NEUTROPHILS # (AUTO) 3.5 X10'3 (1.8-7.7); NEUTROPHILS % (AUTO) 50.3 % (42-75); PLATELET COUNT 301 X10'3 (140-440); RED BLOOD COUNT 4.41 X10'6 (4.20-5.60); RED CELL DISTRIBUTION WIDTH 13.4 % (11.5-14.5)
[2024-06-13 07:59] LABS: ALANINE AMINOTRANSFERASE 20 U/L (12-78); ALBUMIN 3.6 G/DL (3.4-5.0); ALBUMIN/GLOBULIN RATIO 1.1 (1.1-1.5); ALKALINE PHOSPHATASE 90 IU/L (46-116); ANION GAP 9 (8-16); ASPARTATE AMINO TRANSFERASE 13 U/L (10-37); BILIRUBIN,TOTAL 0.6 MG/DL (0.1-1.0); BLOOD UREA NITROGEN 23 MG/DL (7-18); BUN/CREATININE RATIO 30.7 (10.0-20.0); CALCIUM 9.2 MG/DL (8.5-10.1); CHLORIDE 107 MMOL/L (99-107); CREATININE 0.75 MG/DL (0.40-0.90); GLUCOSE 110 MG/DL (70-104); LIPASE 40 U/L (16-77); POTASSIUM 3.8 MMOL/L (3.5-5.1); SODIUM 140 MMOL/L (135-145); TOTAL CARBON DIOXIDE 23.6 MMOL/L (24-32); TOTAL PROTEIN 6.8 G/DL (6.4-8.2); eCRCL 66 ML/MIN; eGFR 76 ML/MIN
[2024-06-13] MEDS ORDERED: iohexol 300mg/ml 100ml inj. ONE (08:36)
[2024-06-13 09:47] LABS: BILIRUBIN,URINE NEGATIVE (Neg); CLARITY,URINE CLEAR (Clear); COLOR,URINE YELLOW (Yellow); GLUCOSE, URINE NEGATIVE (Neg); KETONES,URINE NEGATIVE (Neg); LEUKOCYTE ESTERASE ,URINE NEGATIVE (Neg); NITRITES, URINE NEGATIVE (Neg); OCCULT BLOOD,URINE NEGATIVE (Neg); PROTEIN,URINE NEGATIVE (Neg); UROBILINOGEN,URINE 0.2 E.U/dL (0.2-1.0)
[2024-06-13 10:02] LABS: UA COLLECTION TYPE CLN CATCH MIDSTREAM
[2024-06-13] MEDS: mag hydrox/Alum hydrox/simeth 30ml oral suspension PO ONE (10:39)
[2024-06-13] MEDS: pantoprazole 40mg Tablet.DR PO SCH (10:39)
[2024-06-13] MEDS: LIDOcaine 2% Viscous 15ml cup MM PRN (10:39)
[2024-06-13 10:42] VITALS: BP 123/70; PULSE 55; RESP 18; O2SAT 98
[2024-06-13] MEDS ORDERED: OMEP40CA21 PO (11:32)
== END 2024-06-13 12:08 | disposition home or self-care (01) ==
LOC: ER 06:09
DX: R10.13 Epigastric pain (principal); M54.89 Other dorsalgia; I50.9 Heart failure, unspecified; J44.9 Chronic obstructive pulmonary disease, unspecified; Z90.710 Acquired absence of both cervix and uterus; Z90.49 Acquired absence of other specified parts of digestive tract; Z79.52 Long term (current) use of systemic steroids; Z79.899 Other long term (current) drug therapy; Z60.2 Problems related to living alone
CPT/HCPCS: 36415; 74177; 80053; 81003; 83690; 85025; 93005; 99285; Q9967

== ENCOUNTER 2024-08-27 14:04 | Emergency (ER) | payer MEDICARE ==
[~2024-08-27] VITALS: Ht 170.2 cm; Wt 111.6 kg
[2024-08-27 14:13] VITALS: BP 94/76; PULSE 91; TEMP 97.8; O2SAT 95
[2024-08-27] MEDS ORDERED: HYDR-3965 PO (15:35)
[2024-08-27 15:37] VITALS: RESP 18
[2024-08-27] MEDS: HYDROcodone/acetaminophen 5mg/325mg tablet PO ONE (15:37)
== END 2024-08-27 15:55 | disposition home or self-care (01) ==
LOC: ER 14:05
DX: S73.102A Unspecified sprain of left hip, initial encounter (principal); I50.9 Heart failure, unspecified; J44.9 Chronic obstructive pulmonary disease, unspecified; Z90.49 Acquired absence of other specified parts of digestive tract; Z90.710 Acquired absence of both cervix and uterus; W18.39XA Other fall on same level, initial encounter; Y93.89 Activity, other specified; Y92.89 Other specified places as the place of occurrence of the external cause; Y99.8 Other external cause status
CPT/HCPCS: 99284

== ENCOUNTER 2024-10-27 19:05 | Emergency (ER) | payer MEDICARE ==
--- NOTE | 2024-10-27 20:00 | RADIOLOGY REPORT ---
Clinical History [facility] FALL W/ HEAD STRIKE Comparison CT HEAD on 11/06/2021, 196 images. Technique: Noncontrast CT volume data aquisition of the head viewed in axial, coronal and sagittal pl anes. All CT scans at this medical facility are performed using dose modulation techniques as appropriate t o a performed exam including the following: Automated exposure control was utilized; adjustment of th e mA and/or kV according to patient size; and use of iterative reconstruction technique. All CT studies are reported to the Dose Index Registry of the [employer]. Without Contrast Radiation Dose: CTDI (mGy): 55.40; DLP (mGy-cm): 1045.35 EMILY MAYS, [id number] FINDINGS: There is a small right lateral occipital craniectomy defect as on prior study. Osseous structures do not suggest acute pathology. Ventricles are of normal size, shape and position. There are no intra-axial or extra-axial collectio ns of blood or fluid. There is no mass, mass effect or shift of midline structures. There is no CT evidence for acute ischemic infarct. MRI is more sensitive for this diagnosis. Posterior fossa structures are unremarkable. Sella and parasellar regions are unremarkable. Basal c isterns are patent. Orbits and orbital contents are unremarkable, imaged portions of paranasal sinuses clear, mastoid air cells clear. IMPRESSION: 1. No evidence of acute intracranial pathology identified on noncontrast CT. 2. No evidence of intracranial hemorrhage, no evidence of skull fracture. This report was electronically signed by Colin Pang MD on 10/27/2024 7:56:29 PM.
--- NOTE | 2024-10-27 20:31 | Physician Documentation ---
History of Present Illness ~ Chief Complaint: Mechanical Fall Stated Complaint: FALL HIT HEAD 1730 TODAY Time Seen by MD: 19:54 Primary Medical Doctor: Dionicio Ladd appt.06/28/24 to [facility] Mode of Arrival: POV HPI 74-year-old female presenting for face pain she tripped and fell on a carpet and fell forward onto her right cheek and forehead. This happened several hours prior to arrival she has increasing discomfort around her right frontal sinus area as well as headache. She has chronic facial nerve pain which feels similar to prior episodes. Denies loss of consciousness. 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*, Congestive Heart Failure, *PULMONARY*, COPD, Pneumonia, Thyroid (unspecified) Past Surgical History: abdominal surgery, brain surgery, cholecystectomy, hysterectomy Other Past Surgical History: Sinus surgery Alcohol Use: None Drug Use: none Lives with: Alone Lives In: Home Occupation: retired Review of Systems All Other Systems at this time: Reviewed and Negative Physical Exam Vital Signs: Temperature: 97.7, Heart Rate: 69, Respiratory Rate: 16, BP: 121/82, Pulse Oximetry: 97 Oxygen Flow Rate: 0 Physical Exam Well-appearing no distress resting comfortably in bed HEENT small contusion right eyebrow. Extraocular motions intact pupils PERRLA Neuro awake alert oriented cranial nerves 2-12 intact No C-spine tenderness Normal gait Progress Results/Orders Results/Orders Orders - SANDRA ERICKSON MD Ct Head (10/27/24 19:00) Completed Orders - SANDRA ERICKSON MD Ct Head (10/27/24 19:00) Gabapentin Capsule (Neurontin Capsule) (10/27/24 21:10) Vital Signs 10/27/24 10/27/24 10/27/24 19:09 19:36 19:42 Temp 97.7 97.7 Pulse 79 69 Resp 16 B/P (MAP) 122/77 121/82 (95) Pulse Ox 98 97 O2 Flow Rate 0 0 EKG/XRAY/CT/US/VASC/MRI CT : Impression CT head independently interpreted by myself shows no intracranial hemorrhage Medical Decision Making Additional Comment Orbital fracture, intracranial hemorrhage concussion Departure Disposition: HOME / SELF CARE / HOMELESS Impression: Primary Impression: Contusion Qualified Codes: S00.03XA - Contusion of scalp, initial encounter Additional Instructions: Your CT scan is reassuring. Drink plenty of fluids and take Tylenol as needed Referrals: NO PRIMARY CARE PROVIDER (PCP) Signature Scribe Signature: na Attestation: SANDRA Sousa MD October 27, 2024 20:31
[2024-10-27] MEDS: gabapentin 300mg capsule PO ONE (21:51)
[2024-10-27 21:52] VITALS: BP 119/87; PULSE 65; RESP 14; O2SAT 97
[2024-10-27 21:58] VITALS: TEMP 97.7
== END 2024-10-27 22:00 | disposition home or self-care (01) ==
LOC: ER 19:06
DX: S00.11XA Contusion of right eyelid and periocular area, initial encounter (principal); J44.9 Chronic obstructive pulmonary disease, unspecified; I50.9 Heart failure, unspecified; Z90.49 Acquired absence of other specified parts of digestive tract; Z90.710 Acquired absence of both cervix and uterus; W01.0XXA Fall on same level from slipping, tripping and stumbling without subsequent striking against object, initial encounter; Y93.89 Activity, other specified; Y92.89 Other specified places as the place of occurrence of the external cause; Y99.8 Other external cause status
CPT/HCPCS: 70450; 99284

== ENCOUNTER 2024-10-31 20:10 | Emergency (ER) | payer MEDICARE ==
[~2024-10-31] VITALS: Ht 170.2 cm; Wt 109.9 kg
[2024-10-31] MEDS: LIDOcaine 2% Viscous 15ml cup MM ONE (23:00)
[2024-10-31] MEDS: mag hydrox/Alum hydrox/simeth 30ml oral suspension PO ONE (23:00)
--- NOTE | 2024-10-31 23:00 | Physician Documentation ---
History of Present Illness ~ Chief Complaint: Abdominal Pain Stated Complaint: ABDOMINAL PAIN Time Seen by MD: 22:24 Primary Medical Doctor: Dionicio Ladd appt.06/28/24 to [facility] care Source: patient Mode of Arrival: Dropped Off Exam Limitations: no limitations HPI 74-year-old female with history of acid reflux patient has been seen by primary care and urgent Care is currently on omeprazole and scheduled for an EGD on November 04, 2024. Patient has some nausea associated with the constant acid reflux she is experiencing but denies any vomiting. Patient denies any constipation or diarrhea no blood in her stool. Patient does monitor triggering foods. Patient states that she experiences chronic pain is off of opiate pain medication but does take NSAIDs frequently. Patient is not taking NSAIDs currently since the acid reflux has been more constant over the past 2 weeks but occurring intermittently for several months. Timing/Duration: weeks Pain Location: epigastric Activities on Onset: after eating ?: no History Of: narcotic use, ulcer disease Modifiy Factors: Improves with: antacids Recent Activites: NSAID use Associated Symptoms: nausea, heartburn Emesis Description: none Bloody Stools: none Rectum: no symptoms Medication Reconciliation Allergies: Coded Allergies: No Known Allergies (Unverified , 10/31/24) Scheduled Fluticasone Propionate (Flonase), 2 SPRAYS BOTHNARES DAILY Pantoprazole Sodium (PROTONIX tablet), 1 TAB PO DAILY Miscellaneous Medications Home Med List (No Home Medications), (Reported) Past Medical History Past Medical History: *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*, Congestive Heart Failure, *PULMONARY*, COPD, Pneumonia, GERD, Thyroid (unspecified) Past Surgical History: abdominal surgery, brain surgery, cholecystectomy, hysterectomy Other Past Surgical History: Sinus surgery Alcohol Use: None Drug Use: none Lives with: Alone Lives In: Home Occupation: retired Review of Systems All Other Systems at this time: Reviewed and Negative Gastrointestinal: Reports: see HPI Physical Exam Vital Signs: RN Vital Signs have been reviewed: Yes, Temperature: 97.7, Source: Temporal, Heart Rate: 79, Respiratory Rate: 16, BP: 125/83, Pulse Oximetry: 97, Weight: 109.900 Oxygen Flow Rate: 0 General Appearance: alert, WD/WN, no apparent distress Respiratory: lungs clear, normal breath sounds, no respiratory distress Chest: no accessory muscle use, chest non-tender Cardiology Exam: normal peripheral pulses, regular rate, rhythm, no edema Gastrointestinal Mild epigastric tenderness. No masses no rebound, guarding, rigidity bowel sounds present Bladder: normal, non tender Progress Results/Orders Results/Orders Orders - NORMA LORENZANA NP Maalox 30ml Suspension (10/31/24 22:55) Lidocaine 2% Viscous (Xylocaine 2% Visco (10/31/24 22:55) Vital Signs 10/31/24 10/31/24 20:14 22:51 Temp 97.7 Pulse 79 Resp 16 16 B/P (MAP) 125/83 Pulse Ox 97 O2 Flow Rate 0 Medical Decision Making Diff Dx Pain:Considerations: Include: Angina/KS, Aortic dissection, Cholecystitis, Constipation, Diverticular disease, Esophageal rupture, Gastritis/PUD, Gastroenteritis, Hernia Diff Dx N/V/D:Considerations: Include: GE reflux Additional Comments Vital signs reassuring, chronic issue being followed by primary care as well as Gastroenterology EGD appointment November 04, 2024 to evaluate further. Departure Time of Disposition: 23:03 Disposition: HOME / SELF CARE / HOMELESS Impression: Primary Impression: Acid reflux disease Additional Impression: Epigastric abdominal pain Condition: Stable Discharge Instructions: Food Choices for Gastroesophageal Reflux Disease, Adult, [id number] Additional Instructions: Maintain appointment with Gastroenterology for endoscopy next week. Monitor for any new or worsening symptoms and feel free to return to the emergency department. Discontinue omeprazole and start pantoprazole. Referrals: NO PRIMARY CARE PROVIDER (PCP) Prescriptions Sucralfate (Sucralfate) 1 Gram Tablet 1 TAB PO Q8H for 30 Days, #90 TAB 0 Refills Prov: NORMA LORENZANA NP 10/31/24 Pantoprazole Sodium (Pantoprazole Sodium) 40 Mg Tablet.dr 1 TAB PO DAILY for 30 Days, #30 TAB 0 Refills Prov: NORMA LORENZANA NP 10/31/24 Education Educated: Patient Educated regarding: diagnosis, treatment, need for follow up Signature Scribe Signature: No scribe Attestation: The note accurately reflects work and decisions made by me.Norma Lorenzana - CONVEYOR WEIGHER OPERATOR 10/31/24 23:03 NORMA LORENZANA NP October 31, 2024 23:00
[2024-10-31] MEDS ORDERED: SUCR1TAB PO (23:03)
[2024-10-31] MEDS ORDERED: PANT40TA54 PO (23:03)
[2024-10-31 23:48] VITALS: BP 117/78; PULSE 68; RESP 16; TEMP 97.4; O2SAT 98
== END 2024-10-31 23:59 | disposition home or self-care (01) ==
LOC: ER 20:10
DX: K21.9 Gastro-esophageal reflux disease without esophagitis (principal); I50.9 Heart failure, unspecified; J44.9 Chronic obstructive pulmonary disease, unspecified; Z90.710 Acquired absence of both cervix and uterus
CPT/HCPCS: 99284

== ENCOUNTER 2024-11-09 19:56 | Emergency (ER) | payer MEDICARE ==
[~2024-11-09] VITALS: Ht 170.2 cm; Wt 109.2 kg
[~2024-11-09 19:56] MED LIST changes: +PANT40TA54 PO; +SUCR1TAB PO
[2024-11-09 21:03] LABS: BILIRUBIN,URINE NEGATIVE (Neg); CLARITY,URINE SLIGHTLY CLOUDY (Clear); COLOR,URINE YELLOW (Yellow); GLUCOSE, URINE NEGATIVE (Neg); KETONES,URINE NEGATIVE (Neg); LEUKOCYTE ESTERASE ,URINE TRACE (Neg); NITRITES, URINE NEGATIVE (Neg); OCCULT BLOOD,URINE NEGATIVE (Neg); PROTEIN,URINE NEGATIVE (Neg); UROBILINOGEN,URINE 0.2 E.U/dL (0.2-1.0)
[2024-11-09 21:08] LABS: UA COLLECTION TYPE CLN CATCH MIDSTREAM
[2024-11-09 21:10] LABS: BACTERIA,URINE FEW /HPF (Neg); RBC,URINE 0-2 /HPF (0-2); SQUAMOUS EPITHELIAL CELL,UR FEW /LPF (FEW); WBC,URINE 0-4 /HPF (0-4)
[2024-11-09 21:11] LABS: AMORPHOUS URATES 2+
--- NOTE | 2024-11-09 21:19 | Physician Documentation ---
History of Present Illness Chief Complaint: Flank Pain Stated Complaint: KIDNEY PAIN Time Seen by MD: 20:30 Primary Medical Doctor: Dionicio Ladd appt.06/28/24 to [facility] Mode of Arrival: POV HPI This is a 74-year-old female who presents with weeks of right flank pain radiating to right upper abdomen, patient additionally reports she has been having weeks of abdominal pain when she has received workup for including an endoscopy which was negative. Patient reports the flank pain is worse today describing it as sharp and burning. Patient additionally reports feeling of nausea without vomiting. 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 Physical Exam Vital Signs: Temperature: 98.2, Source: Temporal, Heart Rate: 69, Respiratory R ate: 16, BP: 127/67, Pulse Oximetry: 98, Weight: 109.200 Oxygen Flow Rate: 0 Physical Exam VITALS: Reviewed and as above. GENERAL: Alert, nontoxic appearing, no apparent distress. RESPIRATORY: No increased work of breathing, no respiratory distress, speaking in full clear sentences, clear lung sounds in all cruz CV: Regular rate and rhythm no murmur BACK: CVA tenderness GI: Nondistended, nontender, bowel sounds present, no rebound, no guarding MUSCULOSKELETAL: SKIN: No rash Progress Results/Orders Results/Orders Vital Signs 11/09/24 11/09/24 19:58 20:47 Temp 98.2 Pulse 69 Resp 16 B/P (MAP) 127/67 Pulse Ox 98 O2 Flow Rate 0 Laboratory Tests Test 11/09/24 20:50 Urine Specimen Description Cln catch midstream Urine Color Yellow Urine Clarity Slightly cloudy Urine pH 6.0 Urine Specific [place] >=1.030 Urine Protein Negative Urine Glucose (UA) Negative Urine Ketones Negative Urine Occult Blood Negative Urine Nitrite Negative Urine Bilirubin Negative Urine Urobilinogen 0.2 Urine Leukocyte Esterase Trace H Urine RBC 0-2 Urine WBC 0-4 Urine Squamous Epithelial Cells Few Urine Amorphous Urates 2+ Urine Bacteria Few Urine Culture Indicated Indicated Volume Urine Centrifuged 10 ml Urine Comment EKG/XRAY/CT/US/VASC/MRI CT : Impression Exam: CT CT ABDOMEN PELVIS W/ IV CONTRAST History: Right flank pain radiating to right upper abdomen COMPARISON: CT CT ABDOMEN PELVIS on DOS: 06/13/24, CT CT ABDOMEN PELVIS on DOS: 05/20/23 Technique: Multidetector spiral CT of the abdomen and pelvis was performed from lung bases to pubic symphysis. Intravenous contrast was administered during this examination. Portal venous imaging was obtained. Axial, coronal and sagittal multiplanar reformats were performed by the technologist on a separate workstation. Radiation Dose : 1. Abdomen/Pelvis: CTDIvol mGy, DLP mGy*cm. CONTRAST: Type of contrast: Contrast injected: ml Contrast ingested: ml Findings: Lung Bases: No abnormality demonstrated. Liver: Liver is normal in size but demonstrates diffuse decreased density consistent with fatty infiltration. No focal lesions noted. Gallbladder and Biliary Tree: Cholecystectomy. No biliary ductal dilatation. Spleen: No abnormality demonstrated. Pancreas: No abnormality demonstrated. Adrenal Glands: No abnormality demonstrated. Kidneys: No abnormality demonstrated. Bilateral renal cysts the largest in upper pole of right kidney. No evidence of renal calculus. No hydroureteronephrosis. Bladder: Unremarkable Bowel: Small hiatal hernia noted. Stomach appears grossly unremarkable. No abnormally dilated or thick-walled loops of large or small bowel noted. Mild left-sided colonic diverticulosis without evidence of acute diverticulitis. Appendix appears unremarkable. Ascites: Absent Lymphadenopathy: No evidence of lymphadenopathy. Abdominal Wall and Mesentery: Unremarkable. Vasculature: Unremarkable. Pelvic Organs: Unremarkable Musculoskeletal: No bony lesions or fracture. Lower lumbar spondylosis. IMPRESSION: No acute abdominal or pelvic finding. Radiation optimization: All CT scans at this facility use at least one of these dose optimization techniques: automated exposure control mA and/or kV adjustment per patient size (includes targeted exams where dose is matched to clinical indication) or iterative reconstruction. Electronically Signed by:KWASI DOMINGUEZ MD Date & Time: 11/09/242253 Dictated by: KWASI DOMINGUEZ MD Dictation date and time: 11/09/242253 I have reviewed and agree with the radiology report. I have reviewed and interpreted the imaging as: No intraperitoneal free air, right kidney homogeneous cystic appearing mass Medical Decision Making Findings This 74-year-old female presented with right flank pain radiating to her right upper abdomen for approximately the last three weeks along with reports of vague abdominal pain that has being worked up by her primary care provider including a recent negative endoscopy, it was reassuring patient reported no dysuria or fever, and patient has had a cholecystectomy in the past. Patient's lab work did not demonstrate evidence of significant metabolic or electrolyte derangement or evidence of infection. CT abdomen and pelvis was obtained stood not demonstrate acute intra-abdominal process with the exception of finding of homogeneous cysts on kidneys. There was no clear origin of the patient's abdominal pain, though there was low suspicion for emergent intra-abdominal process. I discussed with the patient CT findings and the need for follow up with her primary care provider which she verbalized understanding of. Patient reported adequate pain control with Toradol in the department and declined prescription for pain medication. Remainder of physical exam was benign vital signs stable, patient is appropriate for outpatient follow up. Patient provided follow up and return to care precautions which she verbalized understanding of. Differential Dx:Considerations: Include: Appendicitis, Bowel obstruction, Cholangitis, Cholelithasis, Constipation, Diverticular disease, Esophagitis, Urinary obstruction, Urinary tract infection, Urolithiasis Departure Disposition: HOME / SELF CARE / HOMELESS Impression: Primary Impression: Abdominal pain Qualified Codes: R10.11 - Right upper quadrant pain Condition: Improved Discharge Instructions: Abdominal Pain, Adult, [id number], Polycystic Kidney Disease, Adult Additional Instructions: Your lab work and CT was reassuring has a did not show evidence of a current emergency, there were some cysts on your kidneys that you should follow up with your primary care provider about. You may use ibuprofen and or Tylenol as n eeded as directed by the [id number] packaging. Please follow up with your primary care provider in the next few days. Please return to the emergency department for any new or worsening concerning symptoms. Referrals: NO PRIMARY CARE PROVIDER (PCP) Education Educated: Patient Educated regarding: diagnosis, treatment, prognosis, need for follow up Signature Scribe Signature: No scribe Attestation: The note accurately reflects work and decisions made by me.MARIBEL Carolina 11/10/24 03:18 CATHRYN RESTREPO November 09, 2024 21:19
[2024-11-09] MEDS: ketorolac trometh 15mg/ml vial 15 MG/ML ML IM ONE (21:55)
[2024-11-09 22:01] LABS: BASOPHILS # (AUTO) 0.1 X10'3 (0-0.2); BASOPHILS % (AUTO) 0.9 % (0-1); EOSINOPHILS # (AUTO) 0.2 X10'3 (0-0.9); EOSINOPHILS % (AUTO) 2.3 % (0-6); HEMATOCRIT 41.9 % (35.0-45.0); HEMOGLOBIN 14.7 g/dl (12.0-16.0); LYMPHOCYTES # (AUTO) 2.6 X10'3 (1.1-4.8); LYMPHOCYTES % (AUTO) 35.8 % (21-51); MEAN CORPUSCULAR HEMOGLOBIN 30.9 PG (27.0-31.0); MEAN CORPUSCULAR VOLUME 88.1 FL (78-98); MEAN PLATELET VOLUME 8.3 FL (7.4-10.4); MONOCYTES # (AUTO) 0.5 X10'3 (0-0.9); MONOCYTES % (AUTO) 7.4 % (2-12); NEUTROPHILS # (AUTO) 3.8 X10'3 (1.8-7.7); NEUTROPHILS % (AUTO) 53.6 % (42-75); PLATELET COUNT 297 X10'3 (140-440); RED BLOOD COUNT 4.75 X10'6 (4.20-5.60); RED CELL DISTRIBUTION WIDTH 13.4 % (11.5-14.5); WHITE BLOOD COUNT 7.1 X10'3 (4.5-11.0)
[2024-11-09] MEDS: ondansetron 4mg rapidly disintigrating tab PO ONE (22:09)
[2024-11-09] MEDS: ketorolac trometh 15mg/ml vial 15 MG/ML ML IV ONE (22:09)
[2024-11-09 22:10] VITALS: TEMP 98.2
[2024-11-09 22:12] LABS: ALANINE AMINOTRANSFERASE 23 U/L (12-78); ALBUMIN 3.9 G/DL (3.4-5.0); ALBUMIN/GLOBULIN RATIO 1.1 (1.1-1.5); ALKALINE PHOSPHATASE 93 IU/L (46-116); ANION GAP 8 (8-16); ASPARTATE AMINO TRANSFERASE 23 U/L (10-37); BILIRUBIN,TOTAL 0.7 MG/DL (0.1-1.0); BLOOD UREA NITROGEN 21 MG/DL (7-18); BUN/CREATININE RATIO 25.3 (10.0-20.0); CALCIUM 9.5 MG/DL (8.5-10.1); CHLORIDE 106 MMOL/L (99-107); CREATININE 0.83 MG/DL (0.40-0.90); GLUCOSE 96 MG/DL (70-104); LIPASE 29 U/L (16-77); SODIUM 142 MMOL/L (135-145); TOTAL CARBON DIOXIDE 27.6 MMOL/L (24-32); TOTAL PROTEIN 7.4 G/DL (6.4-8.2); eCRCL 59 ML/MIN; eGFR 67 ML/MIN
[2024-11-09 22:13] LABS: POTASSIUM 3.9 MMOL/L (3.5-5.1)
[2024-11-09] MEDS ORDERED: iohexol 300mg/ml 100ml inj. ONE (22:23)
--- NOTE | 2024-11-09 22:56 | RADIOLOGY REPORT ---
Exam: CT CT ABDOMEN PELVIS W/ IV CONTRAST History: Right flank pain radiating to right upper abdomen COMPARISON: CT CT ABDOMEN PELVIS on DOS: 06/13/24, CT CT ABDOMEN PELVIS on DOS: 05/20/23 Technique: Multidetector spiral CT of the abdomen and pelvis was performed from lung bases to pubic s ymphysis. Intravenous contrast was administered during this examination. Portal venous imaging was obtained. Axial, coronal and sagittal multiplanar reformats were performed by the technologist on a separate workstation. Radiation Dose : 1. Abdomen/Pelvis: CTDIvol mGy, DLP mGy*cm. CONTRAST: Type of contrast: Contrast injected: ml Contrast ingested: ml Findings: Lung Bases: No abnormality demonstrated. Liver: Liver is normal in size but demonstrates diffuse decreased density consistent with fatty infil tration. No focal lesions noted. Gallbladder and Biliary Tree: Cholecystectomy. No biliary ductal dilatation. Spleen: No abnormality demonstrated. Pancreas: No abnormality demonstrated. Adrenal Glands: No abnormality demonstrated. Kidneys: No abnormality demonstrated. Bilateral renal cysts the largest in upper pole of right kidn ey. No evidence of renal calculus. No hydroureteronephrosis. Bladder: Unremarkable Bowel: Small hiatal hernia noted. Stomach appears grossly unremarkable. No abnormally dilated or thic k-walled loops of large or small bowel noted. Mild left-sided colonic diverticulosis without evidence of acute diverticulitis. Appendix appears unremarkable. Ascites: Absent Lymphadenopathy: No evidence of lymphadenopathy. Abdominal Wall and Mesentery: Unremarkable. Vasculature: Unremarkable. Pelvic Organs: Unremarkable Musculoskeletal: No bony lesions or fracture. Lower lumbar spondylosis. IMPRESSION: No acute abdominal or pelvic finding. Radiation optimization: All CT scans at this facility use at least one of these dose optimization al hniques: automated exposure control mA and/or kV adjustment per patient size (includes targeted exam s where dose is matched to clinical indication) or iterative reconstruction.
[2024-11-10 00:37] VITALS: BP 141/97; PULSE 65; RESP 16; O2SAT 96
== END 2024-11-10 00:39 | disposition home or self-care (01) ==
LOC: ER 19:57
DX: R10.11 Right upper quadrant pain (principal); I50.9 Heart failure, unspecified; J44.9 Chronic obstructive pulmonary disease, unspecified; Z90.49 Acquired absence of other specified parts of digestive tract; Z90.710 Acquired absence of both cervix and uterus
CPT/HCPCS: 36415; 74177; 80053; 81001; 83690; 85025; 87088; 96374; 99285; J1885; Q9967

== ENCOUNTER 2024-11-12 08:25 | Emergency (ER) | payer MEDICARE ==
[~2024-11-12] VITALS: Ht 170.2 cm; Wt 120.0 kg
--- NOTE | 2024-11-12 08:50 | Physician Documentation ---
History of Present Illness ~ Chief Complaint: Flank Pain Stated Complaint: FLANK PAIN Time Seen by MD: 08:35 Primary Medical Doctor: Dionicio Ladd appt.06/28/24 to [facility] Mode of Arrival: EMS, Stretcher HPI 74-year-old female presenting with bilateral flank pain that has been ongoing for the past month but has significantly worsened over the past couple of days. The patient reports that she has a severe 10/10 burning type of pain on both flanks which radiates to her abdomen. She reports the pain has been constant and gradually worsening. Describes nausea as well but no vomiting but states that she has had subjective fevers. Recently she was diagnosed with polycystic kidneys. She denies any urinary symptoms, constipation, diarrhea or any other associated symptoms. 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*, Congestive Heart Failure, *PULMONARY*, COPD, Pneumonia, GERD, Thyroid (unspecified) Past Surgical History: abdominal surgery, brain surgery, cholecystectomy, hysterectomy Other Past Surgical History: Sinus surgery Alcohol Use: None Drug Use: none Lives with: Alone Lives In: Home Occupation: retired Review of Systems All Other Systems at this time: Reviewed and Negative Physical Exam Physical Exam Vital Signs: Temperature: 97.9, Source: Oral, Heart Rate: 67, Respiratory Rate: 16, BP: 137/78, Pulse Oximetry: 99, Weight: 120.000 Oxygen Flow Rate: 0 Physical Exam I have reviewed the triage vitals. CONST: Well developed and well nourished. Appears to be in mild distress due to pain. HENT: Head Atraumatic EYES: Pupils are equal, round and reactive to light. Normal conjunctiva NECK: Normal range of motion. Supple. CARDIO: Normal rate and regular rhythm. No murmurs, rubs, or gallops. S1, S2. PULM/CHEST: No respiratory distress. Lungs clear to auscultation. No wheeze ABD: Soft, Nondistended. Bowel sounds normal. No guarding. Tenderness to palpation over the bilateral upper quadrants and epigastrium. There is bila teral CVA tenderness. : Exam deferred MSK: No edema. No deformity. NEURO: Alert and oriented to person, place and time. Moving all extremities SKIN: Warm and dry. PSYCH: Normal mood and affect. Good eye contact. Progress Results/Orders Results/Orders Orders - GHAZAL PETERSON MD Culture Blood (11/12/24 08:43) Chest,Single View (11/12/24 08:46) Ct Abdomen Pelvis (11/12/24 10:02) Cult Urine + [place] Ct (11/12/24 11:58) Completed Orders - GHAZAL PETERSON MD Lipase (11/12/24 08:36) CMP (11/12/24 08:36) Hs Troponin I W Calculations (11/12/24 08:43) Electrocardiogram (11/12/24 ) Lacticsepsis (11/12/24 08:43) Procalcitonin (11/12/24 08:43) Morphine 4mg/Ml Inj. (Morphine Inj.) (11/12/24 08:45) Ondansetron Inj. (Zofran 4mg/2ml Vial) (11/12/24 08:45) Chest,Single View (11/12/24 08:46) Ct Abdomen Pelvis (11/12/24 10:02) Normal Saline 1000ml (Sodium Chloride 10 (11/12/24 08:50) Cbc/Diff (11/12/24 09:24) Ketorolac Trometh 30mg/Ml Vial (Toradol (11/12/24 10:35) Normal Saline 1000ml (Sodium Chloride 10 (11/12/24 11:00) MG (11/12/24 09:03) Ua W/Microscopic, Cult If Ind (11/12/24 11:04) Hydromorphone 1 Mg/Ml/Pf (Dilaudid Inj.) (11/12/24 12:20) Ondansetron Inj. (Zofran 4mg/2ml Vial) (11/12/24 14:30) Medications Received in ER Medications (Trade) Dose Ordered Sig/Giovany Route PRN Reason Start Time Stop Time Status Last Admin Dose Admin Sodium Chloride 1,000 ml @ 1,000 mls/hr ONCE ONCE IV 11/12/24 11:00 11/12/24 11:59 DC 11/12/24 11:27 1,000 MLS/HR (Dilaudid inj.) 1 mg ONCE ONCE IV 11/12/24 12:20 11/12/24 12:21 DC 11/12/24 12:39 1 MG (Zofran 4mg/2ml vial) 4 mg ONCE ONCE IV 11/12/24 14:30 11/12/24 14:32 DC 11/12/24 15:21 4 MG Vital Signs 11/12/24 11/12/24 11/12/24 11/12/24 08:31 08:37 09:29 09:44 Temp 97.9 97.9 Pulse 67 54 Resp 18 16 18 16 B/P (MAP) 137/78 134/64 (87) Pulse Ox 99 97 O2 Flow Rate 0 0 11/12/24 11/12/24 11/12/24 11/12/24 10:26 10:40 11:20 11:28 Temp 97.9 Pulse 59 Resp 16 18 15 16 B/P (MAP) 133/67 (89) Pulse Ox 100 O2 Flow Rate 0 11/12/24 11/12/24 11/12/24 11/12/24 12:39 13:21 13:25 15:25 Temp 97.9 97.9 Pulse 66 50 Resp 16 16 18 16 B/P (MAP) 123/66 (85) 128/68 (88) Pulse Ox 98 97 O2 Flow Rate 0 0 11/12/24 16:32 Temp 97.9 Pulse 50 Resp 18 B/P (MAP) 137/86 Pulse Ox 97 Laboratory Tests Test 11/12/24 09:03 11/12/24 09:05 11/12/24 09:44 11/12/24 11:04 CBC Comment Sodium Level 141 Potassium Level 4.2 Chloride Level 105 Carbon Dioxide Level 24.9 Anion Gap 11 Blood Urea Nitrogen 17 Creatinine 0.79 Estimated GFR/1.73 m2 71 BUN/Creatinine Ratio 21.5 H Glucose Level 106 H Calcium Level 9.3 Magnesium Level 2.2 Total Bilirubin 0.7 Aspartate Amino Transf (AST/SGOT) 17 Alanine Aminotransferase (ALT/SGPT) 22 Alkaline Phosphatase 99 Troponin I High Sensitivity 5 Total Protein 7.5 Albumin 4.0 Globulin 3.5 Albumin/Globulin Ratio 1.1 Lipase 33 Procalcitonin < 0.05 Chemistry Comments Lactic Acid Level 1.7 White Blood Count 7.2 Red Blood Count 4.43 Hemoglobin 13.7 Hematocrit 39.3 Mean Corpuscular Volume 88.8 Mean Corpuscular Hemoglobin 31.0 Mean Corpuscular Hemoglobin Concent 34.9 Red Cell Distribution Width 13.4 Platelet Count 283 Mean Platelet Volume 8.4 Neutrophils (%) (Auto) 53.2 Lymphocytes (%) (Auto) 35.1 Monocytes (%) (Auto) 7.9 Eosinophils (%) (Auto) 3.0 Basophils (%) (Auto) 0.8 Neutrophils # (Auto) 3.8 Lymphocytes # (Auto) 2.5 Monocytes # (Auto) 0.6 Eosinophils # (Auto) 0.2 Basophils # (Auto) 0.1 Urine Specimen Description Cln catch midstream Urine Color Yellow Urine Clarity Slightly cloudy Urine pH 6.0 Urine Specific [place] >=1.030 Urine Protein Negative Urine Glucose (UA) Negative Urine Ketones Negative Urine Occult Blood Negative Urine Nitrite Negative Urine Bilirubin Negative Urine Urobilinogen 0.2 Urine Leukocyte Esterase Small H Urine RBC 0-2 Urine WBC 5-10 H Urine Squamous Epithelial Cells Moderate Urine Bacteria Few Urine Mucus Few Urine Culture Indicated Indicated Volume Urine Centrifuged 10 ml Urine Comment Microbiology Date/Time Source Procedure Growth Status 11/12/24 11:58 Urine Clean Catch Midstream Urine Culture - Preliminary Culture received. Resulted 11/12/24 09:05 Blood Iv Start Blood Culture - Preliminary NEGATIVE (LESS THAN 24 HOURS) Resulted EKG/XRAY/CT/US/VASC/MRI EKG : Additional Comment EKG as interpreted by ED MD indicating normal sinus rhythm with a rate of 68 be ats per minute, normal axis, no signs of ischemia. Chest X-Ray : Additional Comments Procedure: DI CHEST,SINGLE VIEW 11/12/2024 09:14 AM Indication: SOB Comparison: CHEST,SINGLE VIEW on DOS: 11/06/21, CHEST,SINGLE VIEW on DOS: 10/20/20 TECHNIQUE: DI CHEST,SINGLE VIEW FINDINGS: Medical devices: None. Cardiomediastinal: The heart is normal in size. Pulmonary vasculature is within normal limits. Lungs: No focal pulmonary opacity is seen. The costophrenic angles are clear. No pneumothorax. Bones/soft tissues: No acute abnormality is noted. IMPRESSION: 1. No acute cardiopulmonary disease. CT : Impression Procedure: CT CT ABDOMEN PELVIS 11/12/2024 09:52 AM Indication: Bilateral flank pain Comparison Study: CT CT ABDOMEN PELVIS W/ IV CONTRAST on DOS: 11/09/24, CT CT ABDOMEN PELVIS on DOS: 06/13/24, CT CT ABDOMEN PELVIS on DOS: 05/20/23 Technique: Axial images were obtained and reformatted in coronal and sagittal planes. All CT scans at this medical facility are performed using dose modulation techniques as appropriate to a performed exam including the following: Automated exposure control was utilized; adjustment of the MA and/or KV according to patient size; and use of iterative reconstruction technique. CT Dose: CTDI volume is 36.6 mGy. Dose-length product is 1913 mGy*cm FINDINGS: Lower Chest: Mild right basilar subsegmental atelectasis. Hepatobiliary: Gallbladder is surgically absent. Spleen: Unremarkable. Pancreas: Unremarkable. Adrenal Glands: Unremarkable. tract: The kidneys are normal in size bilaterally without hydronephrosis . A few punctate nonobstructing calculi are seen in both kidneys measuring 1-2 mm. Several bilateral renal cysts are noted measuring up to 5.9 cm in the upper pole of the right kidney. The urinary bladder is unremarkable. GI tract: The stomach is grossly normal in appearance. No evidence of small bowel obstruction. Scattered colonic diverticula are noted without evidence of diverticulitis. The appendix is normal. Lymphatics: No mesenteric, retroperitoneal or periportal lymphadenopathy. Vasculature: Aorta is normal in caliber. Scattered calcified plaques are noted. Pelvic Organs: The uterus is surgically absent. No adnexal lesion is identified. Bones/soft tissues: No acute abnormality. Degenerative changes of the lumbar spine noted. Small fat-containing umbilical hernia. Other: None. IMPRESSION: 1. No CT evidence for acute intra-abdominal or intrapelvic process.Few 2. Subcentimeter nonobstructing bilateral renal calculi are seen without hydronephrosis or hydroureter. 3. Scattered colonic diverticula without evidence of diverticulitis. Medical Decision Making Differential Diagnosis 74-year-old female presenting with bilateral ureteral calculi. The patient was in severe pain initially and required 4 mg of IV morphine as well as 30 mg of IV Toradol. She was also given 4 mg of IV Zofran. Her lab workup was grossly unremarkable aside from a slight suggestion of a possible UTI on her urinalysis. CT of the abdomen and pelvis did confirm bilateral renal calculi. He patient was in severe pain and required a further 1 mg dose of IV Dilaudid with good improvement and resolution of symptoms. At this point in time the patient is greatly improved and on reassessment her vitals are stable and normal. I believe she is safe for discharge home. I educated her on the findings. She will be discharged with a prescription for ibuprofen as well as 14 tablets of [place] for breakthrough pain. I advised her to drink plenty of fluids and monitor for passage of the stones. Follow up with primary care physician in the next 2-5 days. Return to the ED with any acutely worsening symptoms. Departure Disposition: 01 HOME / SELF CARE / HOMELESS Impression: Primary Impression: Ureteral calculi Additional Impression: UTI (urinary tract infection) Condition: Improved Discharge Instructions: Kidney Stones Additional Instructions: Take medication as prescribed. Take ibuprofen as needed and reserve the [place] only for breakthrough pain. Drink plenty of fluids and monitor for passage of stones. Follow up with her primary care physician especially if symptoms do not improve. Should symptoms worsen at any point return immediately to the emergency department. Referrals: NO PRIMARY CARE PROVIDER (PCP) Prescriptions Hydrocodone Bit/Acetaminophen 5/325 MG ([place] 5/325 MG) 5 Mg/325 Mg Tablet 1 TAB PO Q12H PRN PRN for pain for 5 Days, #10 TAB Prov: GHAZAL PETERSON MD 11/12/24 Ibuprofen (Ibuprofen) 600 Mg Tablet 1 TAB PO Q8H for pain for 10 Days, #30 TAB 0 Refills with food Prov: GHAZAL PETERSON MD 11/12/24 Signature Scribe Signature: 1 Attestation: 1 GHAZAL PETERSON MD November 12, 2024 08:50
--- NOTE | 2024-11-12 09:04 | ELECTROCARDIOGRAPH REPORT ---
[facility] Test Date: 2024-11-12 Test Time: 09:01:16 Pat Name: EMILY MAYS Department: [facility]-ER Patient ID: [id number] Room: Gender: F [employer] Officer: : 1950 Requested By: GHAZAL PETERSON Order Number: [id number] Reading MD: Measurements Intervals [place] Rate: 68 P: 22 VT: 165 QRS: -24 QRSD: 101 T: 13 QT: 390 QTc: 415 Interpretive Statements Sinus rhythm Probable left ventricular hypertrophy Anterior Q waves, possibly due to LVH Please click the below link to view image of tracing.
[2024-11-12] MEDS: morphine 4 MG/ML inj SYRINge IV ONE (09:29)
[2024-11-12] MEDS: ondansetron/PF 4mg/2ml inj IV ONE ×2 (09:29→15:21)
--- NOTE | 2024-11-12 09:37 | RADIOLOGY REPORT ---
Procedure: DI CHEST,SINGLE VIEW 11/12/2024 09:14 AM Indication: SOB Comparison: CHEST,SINGLE VIEW on DOS: 11/06/21, CHEST,SINGLE VIEW on DOS: 10/20/20 TECHNIQUE: DI CHEST,SINGLE VIEW FINDINGS: Medical devices: None. Cardiomediastinal: The heart is normal in size. Pulmonary vasculature is within normal limits. Lungs: No focal pulmonary opacity is seen. The costophrenic angles are clear. No pneumothorax. Bones/soft tissues: No acute abnormality is noted. IMPRESSION: 1. No acute cardiopulmonary disease.
[2024-11-12] MEDS: normal saline 1000ml 1,000 ML IV ONE ×2 (09:43→11:27)
[2024-11-12 10:03] LABS: BASOPHILS # (AUTO) 0.1 X10'3 (0-0.2); BASOPHILS % (AUTO) 0.8 % (0-1); EOSINOPHILS # (AUTO) 0.2 X10'3 (0-0.9); HEMATOCRIT 39.3 % (35.0-45.0); HEMOGLOBIN 13.7 g/dl (12.0-16.0); LYMPHOCYTES # (AUTO) 2.5 X10'3 (1.1-4.8); LYMPHOCYTES % (AUTO) 35.1 % (21-51); MEAN CORPUSCULAR HGB CONC 34.9 g/dL (33.0-36.5); MEAN CORPUSCULAR VOLUME 88.8 FL (78-98); MEAN PLATELET VOLUME 8.4 FL (7.4-10.4); MONOCYTES # (AUTO) 0.6 X10'3 (0-0.9); MONOCYTES % (AUTO) 7.9 % (2-12); NEUTROPHILS # (AUTO) 3.8 X10'3 (1.8-7.7); NEUTROPHILS % (AUTO) 53.2 % (42-75); PLATELET COUNT 283 X10'3 (140-440); RED BLOOD COUNT 4.43 X10'6 (4.20-5.60); RED CELL DISTRIBUTION WIDTH 13.4 % (11.5-14.5); WHITE BLOOD COUNT 7.2 X10'3 (4.5-11.0)
[2024-11-12 10:04] LABS: ALANINE AMINOTRANSFERASE 22 U/L (12-78); ALBUMIN/GLOBULIN RATIO 1.1 (1.1-1.5); ALKALINE PHOSPHATASE 99 IU/L (46-116); ANION GAP 11 (8-16); ASPARTATE AMINO TRANSFERASE 17 U/L (10-37); BILIRUBIN,TOTAL 0.7 MG/DL (0.1-1.0); BLOOD UREA NITROGEN 17 MG/DL (7-18); BUN/CREATININE RATIO 21.5 (10.0-20.0); CALCIUM 9.3 MG/DL (8.5-10.1); CHLORIDE 105 MMOL/L (99-107); CREATININE 0.79 MG/DL (0.40-0.90); GLUCOSE 106 MG/DL (70-104); LIPASE 33 U/L (16-77); POTASSIUM 4.2 MMOL/L (3.5-5.1); SODIUM 141 MMOL/L (135-145); TOTAL CARBON DIOXIDE 24.9 MMOL/L (24-32); TOTAL PROTEIN 7.5 G/DL (6.4-8.2); eCRCL 62 ML/MIN; eGFR 71 ML/MIN
--- NOTE | 2024-11-12 10:34 | RADIOLOGY REPORT ---
Procedure: CT CT ABDOMEN PELVIS 11/12/2024 09:52 AM Indication: Bilateral flank pain Comparison Study: CT CT ABDOMEN PELVIS W/ IV CONTRAST on DOS: 11/09/24, CT CT ABDOMEN PELVIS on DOS: 1 08/14/23, CT CT ABDOMEN PELVIS on DOS: 05/20/23 Technique: Axial images were obtained and reformatted in coronal and sagittal planes. All CT scans at this medical facility are performed using dose modulation techniques as appropriate to a performed e xam including the following: Automated exposure control was utilized; adjustment of the MA and/or KV according to patient size; and use of iterative reconstruction technique. CT Dose: CTDI volume is 36. 6 mGy. Dose-length product is 1913 mGy*cm FINDINGS: Lower Chest: Mild right basilar subsegmental atelectasis. Hepatobiliary: Gallbladder is surgically absent. Spleen: Unremarkable. Pancreas: Unremarkable. Adrenal Glands: Unremarkable. tract: The kidneys are normal in size bilaterally without hydronephrosis . A few punctate nonobst ructing calculi are seen in both kidneys measuring 1-2 mm. Several bilateral renal cysts are noted m easuring up to 5.9 cm in the upper pole of the right kidney. The urinary bladder is unremarkable. GI tract: The stomach is grossly normal in appearance. No evidence of small bowel obstruction. Scatte red colonic diverticula are noted without evidence of diverticulitis. The appendix is normal. Lymphatics: No mesenteric, retroperitoneal or periportal lymphadenopathy. Vasculature: Aorta is normal in caliber. Scattered calcified plaques are noted. Pelvic Organs: The uterus is surgically absent. No adnexal lesion is identified. Bones/soft tissues: No acute abnormality. Degenerative changes of the lumbar spine noted. Small fat-c ontaining umbilical hernia. Other: None. IMPRESSION: 1. No CT evidence for acute intra-abdominal or intrapelvic process.Few 2. Subcentimeter nonobstructing bilateral renal calculi are seen without hydronephrosis or hydrourete r. 3. Scattered colonic diverticula without evidence of diverticulitis.
[2024-11-12] MEDS: ketorolac trometh 30MG/ML vial 30 MG/ML VIAL IV ONE (10:40)
[2024-11-12 11:24] LABS: BILIRUBIN,URINE NEGATIVE (Neg); CLARITY,URINE SLIGHTLY CLOUDY (Clear); COLOR,URINE YELLOW (Yellow); GLUCOSE, URINE NEGATIVE (Neg); KETONES,URINE NEGATIVE (Neg); LEUKOCYTE ESTERASE ,URINE SMALL (Neg); NITRITES, URINE NEGATIVE (Neg); OCCULT BLOOD,URINE NEGATIVE (Neg); PROTEIN,URINE NEGATIVE (Neg); UROBILINOGEN,URINE 0.2 E.U/dL (0.2-1.0)
[2024-11-12 11:26] LABS: UA COLLECTION TYPE CLN CATCH MIDSTREAM
[2024-11-12 11:30] LABS: MAGNESIUM 2.2 MG/DL (1.5-2.4)
[2024-11-12 11:43] LABS: SQUAMOUS EPITHELIAL CELL,UR MODERATE /LPF (FEW)
[2024-11-12 11:46] LABS: BACTERIA,URINE FEW /HPF (Neg)
[2024-11-12 11:48] LABS: RBC,URINE 0-2 /HPF (0-2)
[2024-11-12 11:49] LABS: MUCUS STRANDS FEW /LPF (Neg)
[2024-11-12] MEDS: HYDROmorphone 1 mg/ml syringe IV ONE (12:39)
[2024-11-12] MEDS ORDERED: HYDR-3965 PO (16:27)
[2024-11-12] MEDS ORDERED: IBUP-1985 PO (16:27)
[2024-11-12 16:32] VITALS: BP 137/86; PULSE 50; RESP 18; TEMP 97.9; O2SAT 97
== END 2024-11-12 16:43 | disposition home or self-care (01) ==
LOC: ER 08:26
DX: N20.1 Calculus of ureter (principal); N39.0 Urinary tract infection, site not specified; I50.9 Heart failure, unspecified; J44.9 Chronic obstructive pulmonary disease, unspecified; Z90.49 Acquired absence of other specified parts of digestive tract; Z90.710 Acquired absence of both cervix and uterus
CPT/HCPCS: 36415; 71045; 74176; 80053; 81001; 83605; 83690; 83735; 84145; 84484; 85025; 87040; 87088; 93005; 96361; 96374; 96375; 96376; 99285; J1171; J1885; J2270; J2405; J7030

== ENCOUNTER 2024-11-25 18:20 | Emergency (ER) | payer MEDICARE ==
[~2024-11-25] VITALS: Ht 170.2 cm; Wt 118.2 kg
[~2024-11-25 18:20] MED LIST changes: +IBUP-1985 PO
[2024-11-25] MEDS ORDERED: albuterol 2.5 MG/3 ML nebule NEB PRN (20:05)
--- NOTE | 2024-11-25 20:35 | Physician Documentation ---
History of Present Illness Chief Complaint: Flank Pain Stated Complaint: FLANK PAIN Time Seen by MD: 20:02 Primary Medical Doctor: Dionicio Ladd appt.06/28/24 to [facility] HPI 74-year-old female with known history of polycystic kidney disease presents for evaluation of bilateral thigh painless. It is a right that started couple of hours prior to arrival. No obvious trigger provocation. The particular palliating or aggravating factors. Did not attempt to treat it. The pain wraps around to the front. Reports chills and nausea. Denies chest pain difficulty breathing. 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 Physical Exam Vital Signs: Temperature: 97.9, Source: Oral, Heart Rate: 69, Respiratory Rate: 16, BP: 152/76, Pulse Oximetry: 99, Weight: 118.180 Oxygen Flow Rate: 0 Physical Exam GENERAL: Awake, alert, oriented, GCS 15, no apparent distress, non-toxic a ppearing, answers questions, follows commands appropriately. Examined in triage HEENT: Atraumatic, normocephalic, pupils equal, extraocular muscles intact, sclerae anicteric, mucus membranes moist, oropharynx is clear, no stridor. NECK: supple, full active range of motion, trachea midline, no thyromegaly, no lymphadenopathy, no JVD. CARDIOVASCULAR: regular rate/rhythm, no murmurs/gallops/rubs, Pulses are 2+ in all extremities and symmetric. Capillary refill less than 2 seconds. PULMONARY: Nonlabored, good air movement ,no respiratory distress, speaking in full sentences, clear to auscultation bilaterally, no wheezing, no ronchi, no rales, no accessory muscle use. GASTROINTESTINAL: Soft, non-tender, non-distended, normal active bowel sounds, no organomegaly, no pulsatile masses, left CVA tenderness. NEUROLOGIC: Lucid with normal mental status. Normal facial symmetry. Moves all extremities symmetrically and with purpose. No truncal ataxia. Speech is fluid without evidence of dysarthria or aphasia, no focal deficits appreciated. MUSCULOSKELETAL: There is full range of motion of all extremities. There is no joint pain or joint swelling or joint erythema. There is no muscle pain or tenderness or swelling. EXTREMITIES: warm, well-perfused, no cyanosis, no clubbing, no edema, no acute deformities. Skin: warm, dry, no rashes or lesions, no jaundice, no petechiae orpurpura. No ecchymosis. PSYCHIATRIC: Normal affect, normal insight, normal concentration. Focused exam: [] Progress Results/Orders Results/Orders Orders - SNADRA LUCAS DO Cbc/Diff (11/25/24 20:02) D-Dimer (11/25/24 20:02) Pt Inr (11/25/24 20:02) PTT (11/25/24 20:02) Chest,Single View (11/25/24 20:28) PBNP (11/25/24 20:02) MG (11/25/24 20:02) CMP (11/25/24 20:02) Hs Troponin I W Calculations (11/25/24 20:02) Hs Troponin I W Calculations (11/25/24 22:02) Hs Troponin I W Calculations (11/25/24 23:02) Albuterol 2.5mg/3ml Nebule (Proventil 2. (11/25/24 20:05) Urinalysis, Cult If Indicated (11/25/24 20:15) Electrocardiogram (11/25/24 ) Ct Abdomen Pelvis (11/25/24 20:15) Completed Orders - SANDRA LUCAS DO Chest,Single View (11/25/24 20:28) Vital Signs 11/25/24 19:26 Temp 97.9 Pulse 69 Resp 16 B/P (MAP) 152/76 Pulse Ox 99 O2 Flow Rate 0 Laboratory Tests Test 11/25/24 20:24 D-Dimer Comment Coagulation Comments EKG/XRAY/CT/US/VASC/MRI EKG : Additional Comment EKG was obtained and interpreted by myself showing sinus rhythm of 67, normal NV interval, narrow QRS, no QT prolongation, normal axis, no STEMI. Medical Decision Making Findings Facility Status: ED Holds, [facility] process The plan was discussed with the patient, who demonstrates clear understanding of the plan and is in agreement with the plan unless otherwise noted in the chart. All questions have been answered, all concerns were addressed unless otherwise documented. I was available throughout their ED stay for frequent reassessment and questions. Differential Diagnoses (considered and possible or likely): [Differential diagnosis considered includes urinary tract infection, pyelitis, pyelonephritis, kidney stone, acute appendicitis, acute cholecystitis, pancreatitis, gastritis, PUD, diverticulitis, mesenteric ischemia, abdominal aortic aneurysm, bowel obstruction, enteritis, colitis, fecal impaction, volvulus, IBS, inflammatory bowel disease, specific food intolerance, peritonitis, perforated viscous, malignancy, UTI, abscess, and abdominal pain NOS. Pelvic source of pain was also considered including endometritis, dysmenorrhea, ovarian cyst, ovarian torsion, PID, TOA, cervicitis, vaginitis, or uterine fibroid. History, physical exam, and workup exclude many of the more serious causes listed above. ] ??Differential Diagnoses (considered and unlikely, not requiring evaluation currently): [Aortic/great vessels dissection was considered but it is unlikely based on absence of ripping, tearing, migratory chest pain, absence of syncope or focal neurologic deficits, physical examination indicating equal and symmetric pulses.] MDM Data Please see HPI for the following: Independent Historians and external Records Review. Historian: [Patient] Independent Historians: ?[Record review] Medication Management: [Reviewed medication list] Social History and determinants: [Reviewed] Please see the body of the note for the following: Any independent i nterpretations of ECG, imaging studies. All vitals signs/haemodynamics, ordered tests were independently reviewed and interpreted by myself. Nursing triage complaint and vitals reviewed, additional nursing notes were reviewed as available and I agree unless otherwise noted or documented in contradiction in the chart Vital Signs: Independently reviewed Labs: Independently interpreted Imaging: Independently interpreted Old Medical Records: Independently reviewed, see HPI for relevant summary and information Pulse Oximetry: [99%] interpreted as [normal on room air] by me [Marketing Operations Consultant: [Regular Rate, Regular rhythm, no ectopy, NSR] reviewed and interpreted by me] Additionally notably showing: [Hemodynamics reviewed. Not febrile, not tachycardic, no evidence of hypotension respiratory distress. Laboratory studies show no leukocytosis, no anemia, normal platelets. Coagulation panel is unremarkable. D-dimer is negative decreasing suspicion for PE. Chemistry shows no derangement. Normal liver function. BNP is normal. Two troponins are negative. UA is nondiagnostic for UTI. No blood. Advanced imaging of the abdomen and pelvis was obtained showing no acute disease. Known 5.9 cm cyst in right kidney.] Tests considered but not ordered include: [Not applicable, exhaustive workup was obtained] Social Determinants of Health Impact: Patient was evaluated in [facility] [place] with [place] access to healthcare due to below par ratio of patient to medical providers. [] Comorbid Conditions Impacting Present Evaluation and Care/Treatment: [See list] Management Discussions with other Healthcare Providers: None [] Treatment and Disposition Medication Management (Given or considered): [Pain management]. See EMR for deta ils Consideration for Hospitalization/Escalation/Deescalation of Care: Admission for observation has been considered, [however the patient is able to tolerate p.o., their symptoms are controlled, they are able to rely on oral medications, and their chief complaint/diagnosis can be managed on outpatient basis.] ?ED Course:?[No clinical deterioration. No reason for medical admission to the hospital.] ?Shared decision making:?[Patient is hemodynamically stable for discharge home with follow with their primary care provider. [ ] Specific and cautious return precautions provided and discussed with full understanding. Any incidental f indings were also discussed and follow up recommendations given. [] All questions answered. Patient/family were able to verbalize back return precautions. Patient/family agree to plan. Copies of imaging and laboratory studies were provided.] Code status:?FULL Please see the full Electronic Medical Record for full details of nursing documentation, medications list, other records of complete past medical history and conditions, vital signs, laboratory studies, and any radiologic study interpretations by radiologists. Portions of this note were completed using [employer] dictation software and as a result there may exist minor errors in spelling. I have reviewed elements of past family and social history and agree as included in note. Departure Disposition: HOME / SELF CARE / HOMELESS Impression: Primary Impression: Flank pain Condition: Improved Discharge Instructions: Flank Pain, Adult Additional Instructions: There is no definitive explanation for your pain. However nausea laboratory studies, no urinalysis, nor the imaging show any life-threatening process. Referrals: NO PRIMARY CARE PROVIDER (PCP) Education Educated: Patient Educated regarding: diagnosis, treatment, prognosis, need for follow up Signature Scribe Signature: No scribe Attestation: This note accurately reflects clinical decisions, work performed by myself, DO SHAYY Mason NICHOLAS M DO Nov 25, 2024 20:35
--- NOTE | 2024-11-25 20:40 | ELECTROCARDIOGRAPH REPORT ---
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
[2024-11-25 20:45] LABS: BASOPHILS % (AUTO) 0.7 % (0-1); EOSINOPHILS # (AUTO) 0.2 X10'3 (0-0.9); EOSINOPHILS % (AUTO) 2.6 % (0-6); HEMATOCRIT 41.6 % (35.0-45.0); HEMOGLOBIN 14.1 g/dl (12.0-16.0); LYMPHOCYTES # (AUTO) 2.2 X10'3 (1.1-4.8); MEAN CORPUSCULAR HEMOGLOBIN 30.4 PG (27.0-31.0); MEAN CORPUSCULAR HGB CONC 33.8 g/dL (33.0-36.5); MEAN PLATELET VOLUME 8.5 FL (7.4-10.4); MONOCYTES # (AUTO) 0.5 X10'3 (0-0.9); MONOCYTES % (AUTO) 7.7 % (2-12); NEUTROPHILS # (AUTO) 4.1 X10'3 (1.8-7.7); PLATELET COUNT 303 X10'3 (140-440); RED BLOOD COUNT 4.62 X10'6 (4.20-5.60); RED CELL DISTRIBUTION WIDTH 13.6 % (11.5-14.5)
[2024-11-25 20:49] LABS: APTT 28 SECONDS (22-32); D-DIMER 0.45 MG/L FEU (0-0.50); PROTHROMBIN TIME 10.7 SECONDS (9.0-12.0)
[2024-11-25 20:51] LABS: ALANINE AMINOTRANSFERASE 21 U/L (12-78); ALBUMIN 3.8 G/DL (3.4-5.0); ALBUMIN/GLOBULIN RATIO 1.1 (1.1-1.5); ALKALINE PHOSPHATASE 96 IU/L (46-116); ANION GAP 6 (8-16); ASPARTATE AMINO TRANSFERASE 18 U/L (10-37); BILIRUBIN,TOTAL 0.5 MG/DL (0.1-1.0); BLOOD UREA NITROGEN 14 MG/DL (7-18); BUN/CREATININE RATIO 15.7 (10.0-20.0); CALCIUM 9.4 MG/DL (8.5-10.1); CHLORIDE 108 MMOL/L (99-107); CREATININE 0.89 MG/DL (0.40-0.90); GLUCOSE 98 MG/DL (70-104); POTASSIUM 4.6 MMOL/L (3.5-5.1); SODIUM 143 MMOL/L (135-145); TOTAL CARBON DIOXIDE 28.9 MMOL/L (24-32); TOTAL PROTEIN 7.3 G/DL (6.4-8.2); eCRCL 55 ML/MIN; eGFR 62 ML/MIN
[2024-11-25 20:59] LABS: MAGNESIUM 2.2 MG/DL (1.5-2.4); PRO BRAIN NATRIURETIC PEPTIDE 94 PG/ML (0-125)
--- NOTE | 2024-11-25 21:57 | RADIOLOGY REPORT ---
CHEST RADIOGRAPH Indication: sob Technique: Single frontal view of the chest was obtained Comparison: DI CHEST,SINGLE VIEW on DOS: 11/12/24, CHEST,SINGLE VIEW on DOS: 11/06/21, CHEST,SINGLE VIE W on DOS: 10/20/20 FINDINGS: Lines and Tubes: None Lungs: No focal consolidation. Pleura: No effusion. No pneumothorax. Cardiomediastinal contours: Unremarkable Bones: No acute osseous abnormality. IMPRESSION: No acute cardiopulmonary disease.
[2024-11-25] MEDS ORDERED: iohexol 300mg/ml 100ml inj. ONE (22:17)
[2024-11-25 23:41] LABS: BILIRUBIN,URINE NEGATIVE (Neg); CLARITY,URINE CLEAR (Clear); COLOR,URINE YELLOW (Yellow); GLUCOSE, URINE NEGATIVE (Neg); KETONES,URINE NEGATIVE (Neg); LEUKOCYTE ESTERASE ,URINE SMALL (Neg); NITRITES, URINE NEGATIVE (Neg); OCCULT BLOOD,URINE NEGATIVE (Neg); PH,URINE 7.5 (4.8-8.0); PROTEIN,URINE NEGATIVE (Neg); UROBILINOGEN,URINE 0.2 E.U/dL (0.2-1.0)
[2024-11-25 23:44] LABS: UA COLLECTION TYPE CLN CATCH MIDSTREAM
[2024-11-25 23:50] LABS: BACTERIA,URINE FEW /HPF (Neg); RBC,URINE 0-2 /HPF (0-2); SQUAMOUS EPITHELIAL CELL,UR FEW /LPF (FEW); WBC,URINE 0-4 /HPF (0-4)
[2024-11-25] MEDS: ondansetron/PF 4mg/2ml inj IV ONE (23:52)
[2024-11-25] MEDS: morphine 4 MG/ML inj SYRINge IV ONE (23:52)
--- NOTE | 2024-11-26 01:42 | RADIOLOGY REPORT ---
Exam: CT CT ABDOMEN PELVIS W/ IV CONTRAST History: bilat flank pain COMPARISON: CT CT ABDOMEN PELVIS on DOS: 11/12/24, CT CT ABDOMEN PELVIS W/ IV CONTRAST on DOS: 11/09/24 , CT CT ABDOMEN PELVIS on DOS: 06/13/24, CT CT ABDOMEN PELVIS on DOS: 05/20/23 Technique: Multidetector spiral CT of the abdomen and pelvis was performed from lung bases to pubic s ymphysis. Intravenous contrast was administered during this examination. Portal venous imaging was o btained. Axial, coronal and sagittal multiplanar reformats were performed by the technologist on a [employer] workstation. Radiation Dose : 1. Abdomen/Pelvis: CTDIvol 34.48 mGy, DLP 1754.21 mGy*cm. CONTRAST: Type of contrast: Omnipaque 300 Contrast injected: 100 ml Findings: Lung Bases: No acute or significant lung base finding. Normal heart size. No pleural or pericardial effusion. Liver: The liver is normal in size. Mild diffuse hepatic steatosis. No focal lesions. Normal hepatic vascular enhancement. Gallbladder and Biliary Tree: Status post cholecystectomy. Spleen: Unremarkable Pancreas: The pancreas is normal in appearance without focal lesions or abnormal enhancement. Adrenal Glands: Unremarkable Kidneys: No hydronephrosis. Right superior pole renal cortical cyst measures 5.9 cm. Bladder: Unremarkable Bowel: The stomach is grossly normal in appearance. Small bowel and colon are normal in caliber and d istribution. The appendix is normal. Ascites: Absent Lymphadenopathy: No mesenteric, retroperitoneal or periportal lymphadenopathy. Abdominal Wall and Mesentery: Small fat containing umbilical hernia. Vasculature: The visualized abdominal aorta is normal in size and caliber. Atherosclerotic vascular c alcifications. Abdominal and pelvic vessels demonstrate normal enhancement. Pelvic Organs: Unremarkable, status post hysterectomy. Musculoskeletal: No aggressive focal bony lesions, acute fractures or dislocation. IMPRESSION: 1. No acute abdominal or pelvic finding. 2. Mild diffuse hepatic steatosis. Radiation optimization: All CT scans at this facility use at least one of these dose optimization al hniques: automated exposure control mA and/or kV adjustment per patient size (includes targeted exam s where dose is matched to clinical indication) or iterative reconstruction.
[2024-11-26] MEDS: HYDROmorphone 1 mg/ml syringe IV ONE (01:49)
[2024-11-26 04:32] VITALS: BP 101/63; PULSE 54; RESP 19; TEMP 97.9; O2SAT 100
== END 2024-11-26 04:37 | disposition home or self-care (01) ==
LOC: ER 18:21
DX: R10.9 Unspecified abdominal pain (principal); R06.02 Shortness of breath; R11.0 Nausea; R68.83 Chills (without fever); I50.9 Heart failure, unspecified; K21.9 Gastro-esophageal reflux disease without esophagitis; J44.9 Chronic obstructive pulmonary disease, unspecified; Z90.49 Acquired absence of other specified parts of digestive tract; Z90.710 Acquired absence of both cervix and uterus
CPT/HCPCS: 36415; 71045; 74177; 80053; 81001; 83735; 83880; 84484; 85025; 85379; 85610; 85730; 87088; 93005; 96374; 96375; 99285; J1171; J2270; J2405; Q9967

== ENCOUNTER → 2024-12-02 | Emergency (ER) | payer MEDICARE ==
[~2024-12-02] VITALS: Ht 170.2 cm; Wt 112.0 kg
[~2024-12-02] MED LIST changes: +iohexol 300mg/ml 100ml inj. ONE
[2024-12-02 20:27] VITALS: TEMP 98.2
[2024-12-02 20:41] LABS: BASOPHILS % (AUTO) 0.7 % (0-1); EOSINOPHILS # (AUTO) 0.2 X10'3 (0-0.9); EOSINOPHILS % (AUTO) 3.5 % (0-6); HEMATOCRIT 39.6 % (35.0-45.0); HEMOGLOBIN 13.6 g/dl (12.0-16.0); LYMPHOCYTES # (AUTO) 2.3 X10'3 (1.1-4.8); LYMPHOCYTES % (AUTO) 34.6 % (21-51); MEAN CORPUSCULAR HEMOGLOBIN 30.6 PG (27.0-31.0); MEAN CORPUSCULAR HGB CONC 34.4 g/dL (33.0-36.5); MEAN CORPUSCULAR VOLUME 88.8 FL (78-98); MONOCYTES # (AUTO) 0.7 X10'3 (0-0.9); MONOCYTES % (AUTO) 9.9 % (2-12); NEUTROPHILS # (AUTO) 3.4 X10'3 (1.8-7.7); NEUTROPHILS % (AUTO) 51.3 % (42-75); PLATELET COUNT 268 X10'3 (140-440); RED BLOOD COUNT 4.45 X10'6 (4.20-5.60); RED CELL DISTRIBUTION WIDTH 13.6 % (11.5-14.5); WHITE BLOOD COUNT 6.6 X10'3 (4.5-11.0)
[2024-12-02] MEDS: ondansetron/PF 4mg/2ml inj IV ONE (20:54)
--- NOTE | 2024-12-02 20:54 | Physician Documentation ---
History of Present Illness ~ Chief Complaint: Flank Pain Stated Complaint: FLANK PAIN Time Seen by MD: 20:42 Primary Medical Doctor: Dionicio Ladd appt.06/28/24 to [facility] care Source: patient, EMS, EMS notes reviewed Mode of Arrival: EMS Exam Limitations: no limitations HPI Chief Complaint: Abdominal pain Caveat: None Independent Historians: Paramedics History of Present Illness: Patient is a 74-year-old woman with polycystic kidney disease brought in by paramedics from home with complaints of upper abdominal pain. Patient states that she has had this pain for two weeks and that it got worse earlier today. Pain is described as sharp and constant. Pain is in the left upper quadrant and radiates to the back. Patient states it is secondary to her polycystic kidney disease. Paramedics found the patient to be hypotensive with a blood pressure of 94/60. Heart rate 92. Patient is not on any blood thinners. Patient states that she has had also black stool for four days. Patient also states that she had a recent endoscopy 1-2 months ago that was negative. Patient denies any nausea vomiting or diarrhea. Patient denies any fever. Patient denies any other associated symptoms. Patient denies any alleviating or exacerbating factors. Patient states that the pain does not change when she eats. Review of systems: All systems were reviewed and are negative except for what is indicated in the history of present illness. Past Medical History: Polycystic kidney disease, GERD, trigeminal neuralgia Past Surgical History: Social History: Medications: Reviewed as documented Nursing Notes Allergies: Reviewed as documented in Nursing Notes Medication Reconciliation Allergies: Coded Allergies: No Known Allergies (Unverified , 11/12/24) Scheduled Fluticasone Propionate (Flonase), 2 SPRAYS BOTHNARES DAILY Ibuprofen (Ibuprofen), 1 TAB PO Q8H Pantoprazole Sodium (PROTONIX tablet), 1 TAB PO DAILY Pantoprazole Sodium (Pantoprazole Sodium), 1 TAB PO DAILY Sucralfate (Sucralfate), 1 TAB PO Q8H Miscellaneous Medications Home Med List (No Home Medications), (Reported) Past Medical History 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 All other systems are negative Physical Exam Vital Signs: RN Vital Signs have been reviewed: Yes, Temperature: 98.2, Source: Oral, Heart Rate: 72, Respiratory Rate: 18, BP: 126/83, Weight: 112.000 Pulse Oximetry Reflects: adequate oxygenation Physical Exam General Appearance: MODERATE DISTRESS HEENT: Normal OP, moist oral mucosa, PERRL, EOMI Neck: supple, normal ROM, trachea midline Pulmonary: No respiratory distress, CTA, BS equal Cardiac: RRR, no murmur, rub or gallop, GI: nondistended, soft, MILD LEFT UPPER QUADRANT TENDERNESS, NO RIGHT UPPER QUADRANT TENDERNESS, LOW LOWER ABDOMINAL TENDERNESS, normal bowel sounds, no guarding, no rebound Rectal exam: No masses, brown stool, guaiac negative, controls appropriate Extremities: normal ROM, no swelling, non-tender Skin: intact, dry, warm, no rashes Neuro: AAOx3, speech is clear, no focal motor weakness Psych: normal affect, good eye contact, no apparent hallucination, normal speech Progress Results/Orders Results/Orders Orders - SVEN GALVEZ MD Straight Cath For Urine Sample (12/02/24 20:30) Ct Abdomen Pelvis (12/02/24 21:25) Cult Urine + [place] Ct (12/02/24 21:58) Completed Orders - SVEN GALVEZ MD Cbc/Diff (12/02/24 20:30) Lipase (12/02/24 20:30) CMP (12/02/24 20:30) Ondansetron Inj. (Zofran 4mg/2ml Vial) (12/02/24 20:50) Morphine 4mg/Ml Inj. (Morphine Inj.) (12/02/24 20:50) Normal Saline 1000ml (Sodium Chloride 10 (12/02/24 20:50) Ct Abdomen Pelvis (12/02/24 21:25) Iohexol 300mg/Ml 100ml Inj. (Omnipaque-3 (12/02/24 21:09) Ua W/Microscopic, Cult If Ind (12/02/24 21:36) Medications Received in ER Medications (Trade) Dose Ordered Sig/Giovany Route PRN Reason Start Time Stop Time Status Last Admin Dose Admin (Zofran 4mg/2ml vial) 4 mg ONCE ONCE IV 12/02/24 20:50 12/02/24 20:51 DC 12/02/24 20:54 4 MG (morphine inj.) 4 mg Q20M PRN IV moderate to severe pain 4-10 12/02/24 20:50 12/02/24 22:36 DC 12/02/24 22:33 4 MG (sodium chloride 1000ml IV soln) 1,000 ml ONCE ONCE IVB 12/02/24 20:50 12/02/24 20:51 DC 12/02/24 21:00 1,000 ML Vital Signs 12/02/24 12/02/24 12/02/24 12/02/24 20:27 20:57 21:19 22:30 Temp 98.2 Pulse 72 Resp 18 12 14 18 B/P (MAP) 126/83 12/02/24 22:33 Resp 18 Laboratory Tests Test 12/02/24 20:36 12/02/24 21:36 White Blood Count 6.6 Red Blood Count 4.45 Hemoglobin 13.6 Hematocrit 39.6 Mean Corpuscular Volume 88.8 Mean Corpuscular Hemoglobin 30.6 Mean Corpuscular Hemoglobin Concent 34.4 Red Cell Distribution Width 13.6 Platelet Count 268 Mean Platelet Volume 8.0 Neutrophils (%) (Auto) 51.3 Lymphocytes (%) (Auto) 34.6 Monocytes (%) (Auto) 9.9 Eosinophils (%) (Auto) 3.5 Basophils (%) (Auto) 0.7 Neutrophils # (Auto) 3.4 Lymphocytes # (Auto) 2.3 Monocytes # (Auto) 0.7 Eosinophils # (Auto) 0.2 Basophils # (Auto) 0.0 CBC Comment Sodium Level 144 Potassium Level 4.2 Chloride Level 110 H Carbon Dioxide Level 27.9 Anion Gap 6 L Blood Urea Nitrogen 19 H Creatinine 0.86 Estimated GFR/1.73 m2 65 BUN/Creatinine Ratio 22.1 H Glucose Level 102 Calcium Level 8.6 Total Bilirubin 0.3 Aspartate Amino Transf (AST/SGOT) 15 Alanine Aminotransferase (ALT/SGPT) 27 Alkaline Phosphatase 91 Total Protein 6.4 Albumin 3.3 L Globulin 3.1 Albumin/Globulin Ratio 1.1 Lipase 29 Chemistry Comments Urine Specimen Description Non-specified Urine Color Yellow Urine Clarity Clear Urine pH 7.0 Urine Specific [place] 1.010 Urine Protein Negative Urine Glucose (UA) Negative Urine Ketones Negative Urine Occult Blood Negative Urine Nitrite Negative Urine Bilirubin Negative Urine Urobilinogen 0.2 Urine Leukocyte Esterase Moderate H Urine RBC 0-2 Urine WBC 5-10 H Urine Squamous Epithelial Cells Moderate Urine Transitional Epithelial Cells Few Urine Bacteria Few Urine Culture Indicated Indicated Volume Urine Centrifuged 10 ml Urine Comment Microbiology Date/Time Source Procedure Growth Status 12/02/24 21:58 Urine Nonspecified Urine Culture - Preliminary Culture received. Resulted Medical Decision Making Additional info obtained from: old records Findings Differential diagnosis includes but is not limited to: Gastritis, peptic ulcer, gastric ulcer, duodenitis, cholecystitis, biliary colic, choledocholithiasis, acute pancreatitis, upper GI bleed, aortic dissection, AAA, sepsis, pyelonephritis, urinary tract infection EKG independent interpretation: Chest x-ray, single view, indication: Independent interpretation: CTA ABDOMEN AND PELVIS WITH IV CONTRAST, INDICATION: ABDOMINAL PAIN, POLYCYSTIC KIDNEY DISEASE IMPRESSION: 1. No acute abdominal or pelvic finding. 2. Hepatic steatosis. Laboratory data independent interpretation: CBC: CBC is normal. No evidence of anemia CMP: Remarkable for a mildly elevated BUN of 19, normal creatinine of 0.86. Otherwise unremarkable. Urinalysis: Contaminated specimen Emergency department course/medical decision-making: The patient presents with left upper quadrant abdominal pain. The cause for her pain is unclear. Her abdominal exam is unremarkable with some mild left upper quadrant tenderness that has very focal. The cause for her pain is unknown. Patient does have cysts on the right kidney but not on the left. Patient reported black stool for four days however she does not have any melena. Her rectal exam is negative for melena or blood. There is no evidence of an upper GI bleed. Patient also has a normal hemoglobin and hematocrit. Patient was found to have hepatic steatosis on CT scan. This is incidental. No evidence of a medical or surgical emergency. There was no admission criteria present. Test results and treatment plan reviewed with the patient. Patient is stable for d ischarge. Departure Time of Disposition: 22:46 Disposition: 01 HOME / SELF CARE / HOMELESS Impression: Primary Impression: Abdominal pain of unknown cause Additional Impression: Polycystic kidney disease Condition: Improved Discharge Instructions: Abdominal Pain, Adult, [id number], Polycystic Kidney Disease, Adult Additional Instructions: THE CAUSE OF YOUR PAIN MAY OR MAY NOT BE FROM POLYCYSTIC KIDNEY DISEASE. YOU ONLY APPEAR TO HAVE A CYST IN YOUR RIGHT KIDNEY. PAIN IS ON YOUR LEFT SIDE. FOLLOW UP WITH YOUR PRIMARY CARE DOCTOR NEEDED. Education Educated: Patient Educated regarding: diagnosis, treatment, need for follow up Signature Scribe Signature: No scribe Attestation: No scribe SVEN GALVEZ MD Dec 02, 2024 20:54
[2024-12-02 20:56] LABS: ALANINE AMINOTRANSFERASE 27 U/L (12-78); ALBUMIN 3.3 G/DL (3.4-5.0); ALBUMIN/GLOBULIN RATIO 1.1 (1.1-1.5); ALKALINE PHOSPHATASE 91 IU/L (46-116); ANION GAP 6 (8-16); ASPARTATE AMINO TRANSFERASE 15 U/L (10-37); BILIRUBIN,TOTAL 0.3 MG/DL (0.1-1.0); BLOOD UREA NITROGEN 19 MG/DL (7-18); BUN/CREATININE RATIO 22.1 (10.0-20.0); CALCIUM 8.6 MG/DL (8.5-10.1); CHLORIDE 110 MMOL/L (99-107); CREATININE 0.86 MG/DL (0.40-0.90); GLUCOSE 102 MG/DL (70-104); LIPASE 29 U/L (16-77); POTASSIUM 4.2 MMOL/L (3.5-5.1); SODIUM 144 MMOL/L (135-145); TOTAL CARBON DIOXIDE 27.9 MMOL/L (24-32); TOTAL PROTEIN 6.4 G/DL (6.4-8.2); eCRCL 57 ML/MIN; eGFR 65 ML/MIN
[2024-12-02] MEDS: morphine 4 MG/ML inj SYRINge IV PRN (20:57)
[2024-12-02] MEDS: normal saline 1000ML IV soln IVB ONE (21:00)
[2024-12-02 21:50] LABS: BILIRUBIN,URINE NEGATIVE (Neg); CLARITY,URINE CLEAR (Clear); COLOR,URINE YELLOW (Yellow); GLUCOSE, URINE NEGATIVE (Neg); KETONES,URINE NEGATIVE (Neg); LEUKOCYTE ESTERASE ,URINE MODERATE (Neg); NITRITES, URINE NEGATIVE (Neg); OCCULT BLOOD,URINE NEGATIVE (Neg); PROTEIN,URINE NEGATIVE (Neg); UROBILINOGEN,URINE 0.2 E.U/dL (0.2-1.0)
[2024-12-02 21:51] LABS: UA COLLECTION TYPE NON-SPECIFIED
[2024-12-02 21:56] LABS: SQUAMOUS EPITHELIAL CELL,UR MODERATE /LPF (FEW)
[2024-12-02 21:57] LABS: RBC,URINE 0-2 /HPF (0-2); TRANSITIONAL EPI CELLS,URINE FEW /HPF
[2024-12-02 21:58] LABS: BACTERIA,URINE FEW /HPF (Neg)
--- NOTE | 2024-12-02 22:06 | RADIOLOGY REPORT ---
Exam: CT CT ABDOMEN PELVIS W/ IV CONTRAST History: Abdominal Pain COMPARISON: CT CT ABDOMEN PELVIS W/ IV CONTRAST on DOS: 11/25/24, CT CT ABDOMEN PELVIS on DOS: 11/12/24, CT CT ABDOMEN PELVIS W/ IV CONTRAST on DOS: 11/09/24, CT CT ABDOMEN PELVIS on DOS: 06/13/24, CT CT AB DOMEN PELVIS on DOS: 05/20/23 Technique: Multidetector spiral CT of the abdomen and pelvis was performed from lung bases to pubic s ymphysis. Intravenous contrast was administered during this examination. Portal venous imaging was o btained. Axial, coronal and sagittal multiplanar reformats were performed by the technologist on a [employer] workstation. Radiation Dose : 1. Abdomen/Pelvis: CTDIvol 18.31 mGy, DLP 896.94 mGy*cm. CONTRAST: Type of contrast: Omniscan 300 Contrast injected: 100 ml Findings: Lung Bases: No acute or significant lung base finding. Mild posterior bibasilar atelectasis. Normal h eart size. No pleural or pericardial effusion. Liver: The liver is normal in size. Hepatic steatosis. No focal lesions. Normal hepatic vascular enha ncement. Gallbladder and Biliary Tree: Status post cholecystectomy. Spleen: Unremarkable Pancreas: The pancreas is normal in appearance without focal lesions or abnormal enhancement. Adrenal Glands: Unremarkable Kidneys: No hydronephrosis. Right superior pole renal cortical cyst measures 6.0 cm. 1.6 cm left in terpolar renal cortical cyst. Bladder: Unremarkable Bowel: The stomach is grossly normal in appearance. Small bowel and colon are normal in caliber and d istribution. The appendix is normal. Ascites: Absent Lymphadenopathy: No mesenteric, retroperitoneal or periportal lymphadenopathy. Abdominal Wall and Mesentery: Unremarkable. Vasculature: The visualized abdominal aorta is normal in size and caliber. Atherosclerotic vascular c alcifications. Abdominal and pelvic vessels demonstrate normal enhancement. Pelvic Organs: Unremarkable, status post hysterectomy. Musculoskeletal: No aggressive focal bony lesions, acute fractures or dislocation. IMPRESSION: 1. No acute abdominal or pelvic finding. 2. Hepatic steatosis. Radiation optimization: All CT scans at this facility use at least one of these dose optimization al hniques: automated exposure control mA and/or kV adjustment per patient size (includes targeted exam s where dose is matched to clinical indication) or iterative reconstruction.
[2024-12-02 23:15] VITALS: BP 143/86; PULSE 60; RESP 16; O2SAT 99
[2024-12-02 23:23] LABS: OCCULT BLOOD STOOL NEGATIVE (Neg)
== END | disposition home or self-care (01) ==
LOC: ER 20:23
DX: R10.12 Left upper quadrant pain (principal); Q61.3 Polycystic kidney, unspecified; I50.9 Heart failure, unspecified; J44.9 Chronic obstructive pulmonary disease, unspecified; K21.9 Gastro-esophageal reflux disease without esophagitis; Z90.49 Acquired absence of other specified parts of digestive tract; Z90.710 Acquired absence of both cervix and uterus
CPT/HCPCS: 36415; 74177; 80053; 81001; 82272; 83690; 85025; 87088; 96361; 96374; 96375; 96376; 99285; J2270; J2405; J7030; Q9967

== ENCOUNTER 2024-12-08 21:55 | Emergency (ER) | payer MEDICARE ==
[~2024-12-08 21:55] MED LIST changes: -iohexol 300mg/ml 100ml inj. ONE
--- NOTE | 2024-12-08 22:19 | Physician Documentation ---
History of Present Illness ~ Stated Complaint: FLANK PAIN Time Seen by MD: 01:10 Primary Medical Doctor: Dionicio Ladd appt.06/28/24 to [facility] 74-year-old female presents to the ED with a complaint of right-sided flank pain and burning urination. She states she has a history of poly cystic kidney diagnosis and feels though she has a UTI History as above. 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 Eyes: Conjunctival normal. EOMI. PERRL. ENT: Mucous membranes moist. Neck: Supple, trachea is midline. Chest: Clear to auscultation bilaterally without rales, rhonchi, or wheezes. There is no accessory muscle use or retractions. Cardiac: RRR without murmurs, gallops, or rubs. Abd: Soft, nondistended, positive right CVA tenderness Progress Results/Orders Results/Orders Orders - MIGUEL GAR MD Cult Urine + [place] [address] (12/08/24 23:17) Tramadol Tablet (Ultram Tablet) (12/09/24 01:20) Ceftriaxone Im Kit W/Lidocaine (Rocephin (12/09/24 01:20) Completed Orders - MIGUEL GAR MD Cbc/Diff (12/08/24 22:09) BMP (12/08/24 22:09) Lipase (12/08/24 22:09) CMP (12/08/24 22:09) Ua W/Microscopic, Cult If Ind (12/08/24 22:37) Vital Signs 12/08/24 12/09/24 12/09/24 22:17 00:25 00:38 Temp 96.8 Pulse 83 89 Resp 15 18 18 B/P (MAP) 143/83 120/76 (91) Pulse Ox 96 96 O2 Flow Rate 0 Laboratory Tests Test 12/08/24 22:37 12/08/24 22:42 Urine Specimen Description Non-specified Urine Color Yellow Urine Clarity Cloudy Urine pH 7.0 Urine Specific [place] <=1.005 Urine Protein Negative Urine Glucose (UA) Negative Urine Ketones Negative Urine Occult Blood Small Urine Nitrite Negative Urine Bilirubin Negative Urine Urobilinogen 0.2 Urine Leukocyte Esterase Large H Urine RBC 0-2 Urine WBC 10-20 H Urine WBC Clumps Few Urine Squamous Epithelial Cells Few Urine Bacteria 3+ Urine Culture Indicated Indicated Volume Urine Centrifuged 10 ml Urine Comment White Blood Count 9.7 Red Blood Count 4.62 Hemoglobin 14.1 Hematocrit 41.2 Mean Corpuscular Volume 89.1 Mean Corpuscular Hemoglobin 30.5 Mean Corpuscular Hemoglobin Concent 34.2 Red Cell Distribution Width 13.8 Platelet Count 294 Mean Platelet Volume 8.0 Neutrophils (%) (Auto) 54.2 Lymphocytes (%) (Auto) 34.4 Monocytes (%) (Auto) 8.2 Eosinophils (%) (Auto) 2.7 Basophils (%) (Auto) 0.5 Neutrophils # (Auto) 5.3 Lymphocytes # (Auto) 3.3 Monocytes # (Auto) 0.8 Eosinophils # (Auto) 0.3 Basophils # (Auto) 0.1 CBC Comment Sodium Level 139 Potassium Level 4.2 Chloride Level 105 Carbon Dioxide Level 26.3 Anion Gap 8 Blood Urea Nitrogen 17 Creatinine 1.02 H Estimated GFR/1.73 m2 53 BUN/Creatinine Ratio 16.7 Glucose Level 105 H Calcium Level 9.2 Total Bilirubin 0.5 Aspartate Amino Transf (AST/SGOT) 23 Alanine Aminotransferase (ALT/SGPT) 31 Alkaline Phosphatase 112 Total Protein 7.3 Albumin 3.7 Globulin 3.6 Albumin/Globulin Ratio 1.0 L Lipase 26 Chemistry Comments Microbiology Date/Time Source Procedure Growth Status 12/08/24 23:17 Urine Nonspecified Urine Culture - Preliminary Culture received. Resulted Medical Decision Making Findings Patient presents to the emergency room for evaluation of right flank pain. Differentials include but are not limited to kidney stone, pyelonephritis, musculoskeletal pain, shingles, aortic pathology therefore emergent labs ordered. Patient does not fact have a urinary tract infection. Patient has had four CT scans this past month all of which showed no stones and patient endorses this is the same pain that she has been having therefore I do not feel she requires another CT scan. Antibiotics administered. ER precautions discussed. Departure Disposition: HOME / SELF CARE / HOMELESS Impression: Primary Impression: Acute pyelonephritis Condition: Stable Discharge Instructions: Pyelonephritis, Adult Prescriptions Cephalexin*Monohydrate* (Keflex*) 500 Mg Capsule 1 CAP PO Q12H for 10 Days, #20 CAP Prov: MIGUEL GAR MD 12/09/24 Education Educated: Patient Educated regarding: diagnosis, treatment, need for follow up Signature Scribe Signature: No scribe Attestation: The note accurately reflects work and decisions made by me.Miguel Gar MD 12/09/24 01:21 JYOTI MCCALL NP Dec 08, 2024 22:19 MIGUEL GAR MD Dec 09, 2024 01:22
[2024-12-08 23:06] LABS: BASOPHILS # (AUTO) 0.1 X10'3 (0-0.2); BASOPHILS % (AUTO) 0.5 % (0-1); EOSINOPHILS # (AUTO) 0.3 X10'3 (0-0.9); EOSINOPHILS % (AUTO) 2.7 % (0-6); HEMATOCRIT 41.2 % (35.0-45.0); HEMOGLOBIN 14.1 g/dl (12.0-16.0); LYMPHOCYTES # (AUTO) 3.3 X10'3 (1.1-4.8); LYMPHOCYTES % (AUTO) 34.4 % (21-51); MEAN CORPUSCULAR HEMOGLOBIN 30.5 PG (27.0-31.0); MEAN CORPUSCULAR HGB CONC 34.2 g/dL (33.0-36.5); MEAN CORPUSCULAR VOLUME 89.1 FL (78-98); MONOCYTES # (AUTO) 0.8 X10'3 (0-0.9); MONOCYTES % (AUTO) 8.2 % (2-12); NEUTROPHILS # (AUTO) 5.3 X10'3 (1.8-7.7); NEUTROPHILS % (AUTO) 54.2 % (42-75); PLATELET COUNT 294 X10'3 (140-440); RED BLOOD COUNT 4.62 X10'6 (4.20-5.60); RED CELL DISTRIBUTION WIDTH 13.8 % (11.5-14.5); WHITE BLOOD COUNT 9.7 X10'3 (4.5-11.0)
[2024-12-08 23:09] LABS: BILIRUBIN,URINE NEGATIVE (Neg); CLARITY,URINE CLOUDY (Clear); COLOR,URINE YELLOW (Yellow); GLUCOSE, URINE NEGATIVE (Neg); KETONES,URINE NEGATIVE (Neg); LEUKOCYTE ESTERASE ,URINE LARGE (Neg); NITRITES, URINE NEGATIVE (Neg); OCCULT BLOOD,URINE SMALL (Neg); PROTEIN,URINE NEGATIVE (Neg); UROBILINOGEN,URINE 0.2 E.U/dL (0.2-1.0)
[2024-12-08 23:10] LABS: UA COLLECTION TYPE NON-SPECIFIED
[2024-12-08 23:16] LABS: BACTERIA,URINE 3+ /HPF (Neg); RBC,URINE 0-2 /HPF (0-2); SQUAMOUS EPITHELIAL CELL,UR FEW /LPF (FEW)
[2024-12-08 23:16] LABS: ALANINE AMINOTRANSFERASE 31 U/L (12-78); ALBUMIN 3.7 G/DL (3.4-5.0); ALKALINE PHOSPHATASE 112 IU/L (46-116); ANION GAP 8 (8-16); ASPARTATE AMINO TRANSFERASE 23 U/L (10-37); BILIRUBIN,TOTAL 0.5 MG/DL (0.1-1.0); BLOOD UREA NITROGEN 17 MG/DL (7-18); BUN/CREATININE RATIO 16.7 (10.0-20.0); CALCIUM 9.2 MG/DL (8.5-10.1); CHLORIDE 105 MMOL/L (99-107); CREATININE 1.02 MG/DL (0.40-0.90); GLUCOSE 105 MG/DL (70-104); LIPASE 26 U/L (16-77); POTASSIUM 4.2 MMOL/L (3.5-5.1); SODIUM 139 MMOL/L (135-145); TOTAL CARBON DIOXIDE 26.3 MMOL/L (24-32); TOTAL PROTEIN 7.3 G/DL (6.4-8.2); eGFR 53 ML/MIN
[2024-12-08 23:17] LABS: WBC CLUMPS,URINE FEW /HPF (NEGATIVE)
[2024-12-09 00:38] VITALS: BP 120/76; PULSE 89; RESP 18; O2SAT 96
[2024-12-09] MEDS ORDERED: CEPH-585 PO (01:19)
[2024-12-09] MEDS: CefTRIAXone 1000mg IM Kit (w/lidocaine diluent) IM ONE (01:31)
[2024-12-09] MEDS: traMADol 50MG tablet PO ONE (01:31)
[2024-12-09 01:37] VITALS: TEMP 96.8
== END 2024-12-09 01:49 | disposition home or self-care (01) ==
LOC: ER 21:55
DX: N10 Acute pyelonephritis (principal); I50.9 Heart failure, unspecified; J44.9 Chronic obstructive pulmonary disease, unspecified; K21.9 Gastro-esophageal reflux disease without esophagitis; Z90.49 Acquired absence of other specified parts of digestive tract; Z90.710 Acquired absence of both cervix and uterus
CPT/HCPCS: 36415; 80053; 81001; 83690; 85025; 87088; 87186; 96372; 99283; J0696; 87077

== ENCOUNTER 2024-12-09 07:14 | Emergency (ER) | payer MEDICARE ==
[~2024-12-09] VITALS: Ht 170.2 cm; Wt 110.3 kg
[~2024-12-09 07:14] MED LIST changes: +CEPH-585 PO
[2024-12-09 07:17] VITALS: BP 147/81; PULSE 76; RESP 18; TEMP 98; O2SAT 98
== END 2024-12-09 08:48 | disposition left against medical advice (07) ==
LOC: ER 07:15
DX: Z00.8 Encounter for other general examination (principal); Z53.21 Procedure and treatment not carried out due to patient leaving prior to being seen by health care provider

== ENCOUNTER 2024-12-11 14:54 | Emergency (ER) | payer MEDICARE ==
[~2024-12-11] VITALS: Ht 170.2 cm; Wt 110.3 kg
[2024-12-11 15:08] VITALS: TEMP 98.3
--- NOTE | 2024-12-11 15:15 | Physician Documentation ---
History of Present Illness Chief Complaint: Flank Pain Stated Complaint: BACK PAIN Primary Medical Doctor: Dionicio dowling. HPI This is a 74-year-old female with history of polycystic kidney disease who presents with right flank pain. This patient has of been here in the ED multipl e times this month for similar complaints and received multiple CT scans.she has been prescribed antibiotics but reports ongoing left-sided flank pain Day of Onset: Dec 11, 2024 Medication Reconciliation Allergies: Coded Allergies: No Known Allergies (Unverified , 12/08/24) Scheduled Cephalexin*Monohydrate* (Keflex*), 1 CAP PO Q12H Fluticasone Propionate (Flonase), 2 SPRAYS BOTHNARES DAILY Ibuprofen (Ibuprofen), 1 TAB PO Q8H Pantoprazole Sodium (PROTONIX tablet), 1 TAB PO DAILY Pantoprazole Sodium (Pantoprazole Sodium), 1 TAB PO DAILY Sucralfate (Sucralfate), 1 TAB PO Q8H Miscellaneous Medications Home Med List (No Home Medications), (Reported) Past Medical History 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 Physical Exam Vital Signs: Temperature: 98.3, Source: Temporal, Heart Rate: 83, Respiratory Rate: 18, BP: 121/93, Pulse Oximetry: 97, Weight: 110.350 Oxygen Flow Rate: 0 Physical Exam VITALS: Reviewed and as above. GENERAL: Alert, nontoxic appearing, no apparent distress. HEENT: RESPIRATORY: No increased work of breathing, no respiratory distress, speaking in full clear sentences GI: Negative CVA tenderness Progress Results/Orders Results/Orders Vital Signs 12/11/24 15:08 Temp 98.3 Pulse 83 Resp 18 B/P (MAP) 121/93 Pulse Ox 97 O2 Flow Rate 0 Medical Decision Making Findings MSE performed in triage and patient returned to ED lobby by nursing staff This patient has been worked up for flank pain multiple times shows no signs of a current urinary tract infection. Treated her for pain and inflammation. He has also had multiple CT scans. This is a hemodynamically stable vitals with a normal limits do not see any reason to pursue any further workup patient is a safe discharge. Differential Dx:Considerations: Include: AAA, -Complete, - Incomplete, -Inevitable, -Missed, -Threatened, Abruptio placentae, Angina/PA, Aortic dissection, Appendicitis, Bowel obstruction, Cholangitis, Cholelithasis, Constipation, Diverticular disease, Esophageal rupt ure, Esophagitis, Gastritis/PUD, Gastroenteritis, GI hemorrhage, Hernia, Hepatitis, Inflammatory BD, Ischemic bowel, Ovarian cyst/torsion, Pancreatitis, PID, Porphyria, Trauma, intraabdominal, Urinary obstruction, Urinary tract infection, Urolithiasis, Other Departure Disposition: 01 HOME / SELF CARE / HOMELESS Impression: Primary Impression: Flank pain Condition: Stable Discharge Instructions: Renal Colic, Chronic Back Pain Referrals: NO PRIMARY CARE PROVIDER (PCP) Signature Scribe Signature: g Attestation: Scribed for Jyoti Lewis Well Service Pump Equipment Operator by Jyoti Morin NP . 12/11/24 23:15 CATHRYN RESTREPO Dec 11, 2024 15:15 JYOTI LEWIS NP Dec 11, 2024 17:40 ELOISA BHATT MD Dec 13, 2024 07:27
[2024-12-11 15:38] LABS: BASOPHILS # (AUTO) 0.1 X10'3 (0-0.2); BASOPHILS % (AUTO) 1.2 % (0-1); EOSINOPHILS # (AUTO) 0.2 X10'3 (0-0.9); EOSINOPHILS % (AUTO) 3.4 % (0-6); HEMATOCRIT 41.1 % (35.0-45.0); HEMOGLOBIN 14.1 g/dl (12.0-16.0); LYMPHOCYTES # (AUTO) 2.4 X10'3 (1.1-4.8); LYMPHOCYTES % (AUTO) 33.5 % (21-51); MEAN CORPUSCULAR HEMOGLOBIN 30.8 PG (27.0-31.0); MEAN CORPUSCULAR HGB CONC 34.3 g/dL (33.0-36.5); MEAN CORPUSCULAR VOLUME 89.7 FL (78-98); MEAN PLATELET VOLUME 8.2 FL (7.4-10.4); MONOCYTES # (AUTO) 0.5 X10'3 (0-0.9); MONOCYTES % (AUTO) 7.5 % (2-12); NEUTROPHILS # (AUTO) 3.8 X10'3 (1.8-7.7); NEUTROPHILS % (AUTO) 54.4 % (42-75); PLATELET COUNT 266 X10'3 (140-440); RED BLOOD COUNT 4.58 X10'6 (4.20-5.60); RED CELL DISTRIBUTION WIDTH 13.3 % (11.5-14.5)
[2024-12-11 16:09] LABS: ALANINE AMINOTRANSFERASE 27 U/L (12-78); ALBUMIN 3.5 G/DL (3.4-5.0); ALKALINE PHOSPHATASE 102 IU/L (46-116); ANION GAP 9 (8-16); ASPARTATE AMINO TRANSFERASE 22 U/L (10-37); BILIRUBIN,TOTAL 0.4 MG/DL (0.1-1.0); BLOOD UREA NITROGEN 21 MG/DL (7-18); BUN/CREATININE RATIO 24.7 (10.0-20.0); CHLORIDE 104 MMOL/L (99-107); CREATININE 0.85 MG/DL (0.40-0.90); GLUCOSE 116 MG/DL (70-104); LIPASE 24 U/L (16-77); POTASSIUM 3.9 MMOL/L (3.5-5.1); SODIUM 139 MMOL/L (135-145); TOTAL CARBON DIOXIDE 25.7 MMOL/L (24-32); eCRCL 57 ML/MIN; eGFR 66 ML/MIN
[2024-12-11 17:28] VITALS: BP 128/96; PULSE 67; RESP 16; O2SAT 99
[2024-12-11 17:42] LABS: BILIRUBIN,URINE NEGATIVE (Neg); CLARITY,URINE CLEAR (Clear); COLOR,URINE YELLOW (Yellow); GLUCOSE, URINE NEGATIVE (Neg); KETONES,URINE NEGATIVE (Neg); LEUKOCYTE ESTERASE ,URINE SMALL (Neg); NITRITES, URINE NEGATIVE (Neg); OCCULT BLOOD,URINE NEGATIVE (Neg); PH,URINE 7.5 (4.8-8.0); PROTEIN,URINE NEGATIVE (Neg); UROBILINOGEN,URINE 0.2 E.U/dL (0.2-1.0)
[2024-12-11 17:45] LABS: UA COLLECTION TYPE NON-SPECIFIED
[2024-12-11 17:57] LABS: AMORPHOUS PHOSPHATES 1+; BACTERIA,URINE FEW /HPF (Neg); RBC,URINE NONE SEEN /HPF (0-2); SQUAMOUS EPITHELIAL CELL,UR FEW /LPF (FEW)
[2024-12-11] MEDS: ketorolac trometh 15mg/ml vial 15 MG/ML ML IM ONE (18:41)
[2024-12-11] MEDS: HYDROcodone/acetaminophen 10/325mg tab PO ONE (18:41)
== END 2024-12-11 18:45 | disposition home or self-care (01) ==
LOC: ER 14:54
DX: R10.9 Unspecified abdominal pain (principal); I50.9 Heart failure, unspecified; J44.9 Chronic obstructive pulmonary disease, unspecified; K21.9 Gastro-esophageal reflux disease without esophagitis; Z90.49 Acquired absence of other specified parts of digestive tract; Z90.710 Acquired absence of both cervix and uterus
CPT/HCPCS: 36415; 80053; 81001; 83690; 85025; 87088; 99283

== ENCOUNTER 2025-03-13 13:23 | Emergency (ER) | payer MEDICARE ==
[~2025-03-13] VITALS: Ht 170.2 cm; Wt 101.0 kg
[~2025-03-13 13:23] MED LIST changes: -CEPH-585 PO; -IBUP-1985 PO; +IBUP600T52 PO
[2025-03-13 13:34] VITALS: BP 145/88; PULSE 75; TEMP 97.7; O2SAT 98
[2025-03-13 14:37] LABS: MEAN PLATELET VOLUME 8.4 FL (7.4-10.4); RED CELL DISTRIBUTION WIDTH 14.4 % (11.5-14.5)
[2025-03-13 14:42] LABS: CREATININE 0.67 MG/DL (0.40-0.90); TOTAL CARBON DIOXIDE 27.7 MMOL/L (24-32); eCRCL 73 ML/MIN; eGFR 86 ML/MIN
[2025-03-13] MEDS ORDERED: iohexol 300mg/ml 100ml inj. ONE (14:53)
--- NOTE | 2025-03-13 15:22 | Physician Documentation ---
History of Present Illness Chief Complaint: Abdominal Pain w/vomiting Stated Complaint: ABD PAIN Time Seen by MD: 13:38 OK to notify your PCP?: Yes Primary Medical Doctor: Dionicio dowling. Source: patient Exam Limitations: no limitations HPI Ms. Lerner is a 74 y/o female who presents to the ED with c/o midepigastric ABD pain. She states that she has had this pain off and ov for the past several months. She is attributing it to taking chronic stool softeners. She denies BRBPR or melena. No hematemesis. No recent ABD trauma. Nothing appears to make the pain better or worse. She takes Carafat and states that it typically helps, but this pain is more severe than usual and that is what prompted her to coming in for evaluation today. She denies fever/chills. 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*, Congestive Heart Failure, *PULMONARY*, COPD, Pneumonia, GERD, Thyroid (unspecified) Past Surgical History: abdominal surgery, brain surgery, cholecystectomy, hysterectomy Other Past Surgical History: Sinus surgery Alcohol Use: None Drug Use: none Lives with: Alone Lives In: Home Occupation: retired Review of Systems All Other Systems at this time: Reviewed and Negative Physical Exam Vital Signs: RN Vital Signs have been reviewed: Yes, Temperature: 97.7, Heart Rate: 75, Respiratory Rate: 16, BP: 145/88, Pulse Oximetry: 98, Weight: 101.000 Oxygen Flow Rate: 0 General Appearance: alert, WD/WN, no apparent distress EENT: PERRL/EOMI Neck: normal inspection Respiratory: lungs clear Chest: no accessory muscle use Cardiovascular: normal peripheral pulses Gastrointestinal: bowels sounds present, tenderness Gastrointestinal Midepigastric TTP No rebounding or guarding + BS No pulasatile or palpable masses. Progress Results/Orders Results/Orders Orders - ROLAND MARKS MD Urinalysis, Cult If Indicated (03/13/25 13:44) Ct Abdomen Pelvis (03/13/25 14:26) Completed Orders - ROLAND MARKS MD Cbc/Diff (03/13/25 13:44) BMP (03/13/25 13:44) Lipase (03/13/25 13:44) Iohexol 300mg/Ml 100ml Inj. (Omnipaque-3 (03/13/25 14:53) Vital Signs 03/13/25 03/13/25 13:34 13:45 Temp 97.7 Pulse 75 Resp 16 16 B/P (MAP) 145/88 Pulse Ox 98 O2 Flow Rate 0 Laboratory Tests Test 03/13/25 14:07 White Blood Count 4.4 L Red Blood Count 4.57 Hemoglobin 14.1 Hematocrit 41.3 Mean Corpuscular Volume 90.4 Mean Corpuscular Hemoglobin 30.8 Mean Corpuscular Hemoglobin Concent 34.1 Red Cell Distribution Width 14.4 Platelet Count 241 Mean Platelet Volume 8.4 Neutrophils (%) (Auto) 53.6 Lymphocytes (%) (Auto) 35.2 Monocytes (%) (Auto) 8.2 Eosinophils (%) (Auto) 2.4 Basophils (%) (Auto) 0.6 Neutrophils # (Auto) 2.4 Lymphocytes # (Auto) 1.5 Monocytes # (Auto) 0.4 Eosinophils # (Auto) 0.1 Basophils # (Auto) 0.0 CBC Comment Sodium Level 142 Potassium Level 4.3 Chloride Level 108 H Carbon Dioxide Level 27.7 Anion Gap 6 L Blood Urea Nitrogen 8 Creatinine 0.67 Estimated GFR/1.73 m2 86 BUN/Creatinine Ratio 11.9 Glucose Level 115 H Calcium Level 9.0 Albumin 3.1 L Lipase 27 Chemistry Comments Medical Decision Making Differential Dx:Considerations: Include: AAA, Aortic dissection, Appendicitis, Bowel obstruction, Cholangitis, Cholelithasis, Diverticular disease, Esophageal rupture, Esophagitis, Gastritis/PUD, Gastroenteritis, GI hemorrhage, Hernia, Hepatitis, Inflammatory BD, Ischemic bowel, Pancreatitis, PID, Urinary obstruction, Urinary tract infection, Urolithiasis Additional Comments While here in the ED, he remained hemodynamically normal with ABC's intact and in NAD. She is afebrile and nontoxic. + TTP to epigastric region. No rebounding or guarding. LFT's and lipase normal. Lactic normal. Lytes are unremarkable. No leukocytosis or left shift. Due to her c/o the severity of her pain becoming significantly worse, my concern is for a bowel perforation. CT ABD/Pelvis obtained to further evaluate. CT shows no acute pathology. She was reassessed and is feeling significantly better and is requesting to go home. She has an appointment for an EGD and will follow-up outpatient. She was given follow-up and return instructions. She voiced understanding and agreement with d/c instructions. Departure Disposition: HOME / SELF CARE / HOMELESS Impression: Primary Impression: Abdominal pain Condition: Stable Discharge Instructions: Abdominal Pain (Nonspecific) Referrals: NO PRIMARY CARE PROVIDER (PCP) Education Educated: Patient Educated regarding: diagnosis, treatment Signature Scribe Signature: N/A Attestation: N/A ROLAND MARKS MD Mar 13, 2025 15:22
[2025-03-13 15:33] LABS: LEUKOCYTE ESTERASE ,URINE SMALL (Neg); NITRITES, URINE NEGATIVE (Neg); OCCULT BLOOD,URINE NEGATIVE (Neg)
[2025-03-13 15:39] LABS: UA COLLECTION TYPE NON-SPECIFIED
[2025-03-13 15:41] LABS: SQUAMOUS EPITHELIAL CELL,UR FEW /LPF (FEW)
--- NOTE | 2025-03-13 15:42 | RADIOLOGY REPORT ---
CLINICAL HISTORY: epigastric ABD pain TECHNIQUE: CT of the abdomen and pelvis was performed with IV contrast. This exam was performed according to our departmental dose optimization program. Up-to-date CT equipment and radiation dose reduction techniques are utilized as appropriate. CTDI 34 DLP 1810 COMPARISON: CT CT ABDOMEN PELVIS W/ IV CONTRAST on DOS: 12/02/24, CT CT ABDOMEN PELVIS W/ IV CONTRAST on DOS: 11/25/24, CT CT ABDOMEN PELVIS on DOS: 11/12/24, CT CT ABDOMEN PELVIS W/ IV CONTRAST on DOS: 11/09/24, CT CT ABDOMEN PELVIS on DOS: 06/13/24 FINDINGS: Abdomen/Pelvis: The spleen, pancreas, adrenal glands, and bladder are unremarkable. There is diffuse hepatic steatosis. The gallbladder and uterus are absent. There are bilateral renal cysts. The abdominal aorta is normal in course and caliber. There are moderate atherosclerotic calcifications. There is no free intraperitoneal air or fluid. There is no enlarged abdominal or pelvic lymph node. There is no bowel wall thickening or dilatation. The appendix is normal. There is mild left colon diverticulosis. Other: The imaged lower thorax demonstrate mild atelectatic changes at both lung bases. There is a small hiatal hernia. No acute osseous abnormality is evident. IMPRESSION: No acute CT abnormality in the abdomen/pelvis. Diffuse hepatic steatosis. Mild left colon diverticulosis. Hysterectomy. Cholecystectomy. Small hiatal hernia.
[2025-03-13 16:16] VITALS: RESP 16
== END 2025-03-13 16:20 | disposition home or self-care (01) ==
LOC: ER 13:24
DX: R10.13 Epigastric pain (principal); J44.9 Chronic obstructive pulmonary disease, unspecified; I50.9 Heart failure, unspecified; K21.9 Gastro-esophageal reflux disease without esophagitis; Z88.5 Allergy status to narcotic agent; Z90.49 Acquired absence of other specified parts of digestive tract; Z90.710 Acquired absence of both cervix and uterus; Z79.899 Other long term (current) drug therapy; Z60.2 Problems related to living alone
CPT/HCPCS: 36415; 74177; 80048; 81001; 83690; 85025; 87088; 99285; Q9967